=== PATIENT | female | born 1950 | race Caucasian/White ===

== ENCOUNTER → 2016-09-02 | Outpatient (CLI) | payer MEDICARE, OTHER ==
[~2016-09-02] MED LIST: /WARF25TA OR; ACET65TA OR; ASPIRIN; BISOPROLOL PO; CELEBREX; FLAX SEED PO; HYDROCHLOROTHIZIDE PO; PERC5TAB8 OR; [UNRECOGNIZED DRUG - OTHER] PO; [UNRECOGNIZED DRUG - OTHER] PO
--- NOTE | 2016-09-02 13:19 | REP ---
Digital diagnostic bilateral mammography and focused left breast sonography: History: 6-month follow-up for nodular opacity upper outer quadrant left breast. Screening mammogram on the right. Comparison is made with prior mammography from February 14, 2016, July 14, 2015, and July 10, 2015. Mammographic findings: Breast parenchyma remains predominately fat replaced. A 4 mm nodular density is again seen superficially in the upper outer quadrant of the left breast. It has relatively low mammographic opacity and may even have a portion of fat density. In any event, it is unchanged over the interval since the July 10, 2015 prior mammography. No other neodensity is seen. No microcalcification is observed. No architectural distortion or worrisome skin change is appreciated. Sonographic findings: The left breast is scanned from 12 o'clock to 3 o'clock as before. We were not able to visualize the previously noted complex cystic area. A few dilated ducts are seen at the nipple at the 12 o'clock position. No cyst or mass is seen. Fairly homogeneous background echotexture is seen. Impression: BIRADS category 3 probably benign left breast imaging. No change in the 4 mm nodule in the upper outer quadrant. Repeat left breast mammography recommended in 6 months and bilateral study in 1 year. BI-RADS/ACR category 3 mammogram. Probably benign findings. Initial short-term followup (usually 6 month) examination. This mammogram was interpreted with the aid of an FDA-approved computer-aided detection system. The patient states she had a clinical breast exam in February 2016. The patient letter being requested is M3. Signed by Guero Cofefy MD 09/02/2016 01:44 P
== END ==
LOC: M RAD 10:18
PROVIDERS: ATTEND Surgery
DX: R92.8 Other abnormal and inconclusive findings on diagnostic imaging of breast (principal)
CPT/HCPCS: 76642; G0204

== ENCOUNTER → 2017-02-25 | Outpatient (CLI) | payer MEDICARE, OTHER ==
--- NOTE | 2017-02-25 09:57 | REP ---
Digital diagnostic unilateral left breast mammography with CAD : Five views. History: 6-month follow-up BIRADS category 3 mammogram for a upper outer quadrant nodule in the left breast. Comparison mammography is also reviewed from September 02, 2016, February 14, 2016, July 14, 2015, and July 10, 2015. Findings: There has been no change in the size or appearance of the 4 mm superficial nodule projecting in the upper outer quadrant of the left breast in the interval since June 2015 prior study. Breast parenchyma is otherwise predominately fat replaced. No worrisome skin change is seen. There are scattered dermal calcifications again noted which are benign. Impression: BIRADS category 2 stable left breast mammography. Routine screening mammography can be resumed with a bilateral exam in August 2017. BI-RADS/ACR category 2 mammogram. Benign finding(s). Routine annual screening mammography (for women over age 40). This mammogram was interpreted with the aid of an FDA-approved computer-aided detection system. The patient states she had a clinical breast exam in December 2016. The patient letter being requested is M1. Signed by Guero Coffey MD 02/25/2017 04:01 P
== END ==
LOC: M RAD 08:45
PROVIDERS: ATTEND Surgery
DX: R92.8 Other abnormal and inconclusive findings on diagnostic imaging of breast (principal); R92.0 Mammographic microcalcification found on diagnostic imaging of breast

== ENCOUNTER → 2017-09-03 | Outpatient (CLI) | payer MEDICARE, OTHER | LOC: M WHC 08:36 | DX: Z12.31 Encounter for screening mammogram for malignant neoplasm of breast (principal) | CPT/HCPCS: 77067 ==

== ENCOUNTER → 2018-05-12 | Outpatient (REF) | payer MEDICARE, OTHER ==
[2018-05-12 12:37] LABS: C REACTIVE PROTEIN QUANTITATIV 1.76 MG/DL (0.00-0.30)
== END ==
LOC: M LABDRAW1 10:36
DX: M19.031 Primary osteoarthritis, right wrist (principal)
CPT/HCPCS: 86140

== ENCOUNTER → 2018-06-17 | Outpatient (REF) | payer MEDICARE, OTHER ==
[2018-06-17 18:06] LABS: C REACTIVE PROTEIN QUANTITATIV 1.89 MG/DL (0.00-0.30)
== END ==
LOC: M LAB REF 17:22
DX: M25.50 Pain in unspecified joint (principal)
CPT/HCPCS: 86140

== ENCOUNTER → 2018-09-04 | Outpatient (CLI) | payer MEDICARE, OTHER ==
--- NOTE | 2018-09-04 11:56 | REPMRS ---
Patient History The patient states she has not had a clinical breast exam in over a year. Patient is postmenopausal. Family history of breast cancer at age 48 in sister, prostate cancer at age 50 or over in father. Took estrogen for 5 years. Digital Woman Screen Mammo: September 04, 2018 - Exam #: [id number] Bilateral CC and MLO view(s) were taken. Technologist: Magdalena Dennis, Technologist Prior study comparison: September 03, 2017, digital woman screen mammo performed at [facility]. February 25, 2017, left breast digital mammo diagnostic unilateral, performed at [facility]. September 02, 2016, digital mammo diagnostic bilateral, performed at [facility]. FINDINGS: The breast tissue is almost entirely fat. There is a stable 5 mm well circumscribed benign nodule in the left lateral breast unchanged from multiple prior studies. There has been no change in the appearance of the mammogram from the prior studies. There is no interval development of dominant mass, architectural distortion, or clustered microcalcification typical of malignancy. 3-D tomosynthesis shows no additional findings. Assessment: BI-RADS/ACR category 2 mammogram. Benign Findings. Recommendation Routine screening mammogram of both breasts in 1 year (for women over age 40). This patient's Lifetime Breast Cancer RIsk is estimated at 12.0 %. This mammogram was interpreted with the aid of an FDA-approved computer-aided dectection system. Electronically Signed By: Jose Coffey MD 09/04/18 [id number]
== END ==
LOC: M WHC 09:55
PROVIDERS: ATTEND Family Medicine
DX: Z12.31 Encounter for screening mammogram for malignant neoplasm of breast (principal); Z78.0 Asymptomatic menopausal state; N63.20 Unspecified lump in the left breast, unspecified quadrant; Z80.3 Family history of malignant neoplasm of breast; Z80.42 Family history of malignant neoplasm of prostate; Z92.23 Personal history of estrogen therapy

== ENCOUNTER → 2018-12-28 | Outpatient (REF) | payer MEDICARE, OTHER ==
[~2018-12-28] MED LIST changes: -/WARF25TA OR; +COUM1TAB18 OR
[2018-12-28 13:24] LABS: C REACTIVE PROTEIN QUANTITATIV 1.54 MG/DL (0.00-0.30); RHEUMATOID FACTOR QUANT < 10.0 IU/ML (<15.0); URIC ACID 5.5 MG/DL (2.6-6.0)
[2018-12-29 14:10] LABS: ANTINUCLEAR ANTIBODIES DIRECT Negative (Negative)
== END ==
LOC: M LAB REF 12:06
PROVIDERS: ATTEND Family Medicine
DX: M25.50 Pain in unspecified joint (principal)

== ENCOUNTER → 2019-09-06 | Outpatient (CLI) | payer MEDICARE, OTHER ==
--- NOTE | 2019-09-06 11:15 | REPMRS ---
Patient History The patient states she has not had a clinical breast exam in over a year. Family history of breast cancer at age 48 in sister, prostate cancer at age 50 or over in father. Took estrogen for 5 years. 3D TOMOSYNTHESIS WAS PERFORMED. The [facility] lifetime risk for breast cancer is 11.3%. Digital Woman Screen Mammo: September 06, 2019 - Exam #: [id number] Bilateral CC and MLO view(s) were taken. Technologist: Melina Causey, Technologist Prior study comparison: September 04, 2018, bilateral digital woman screen mammo performed at [facility]. September 03, 2017, digital woman screen mammo performed at [facility]. FINDINGS: There are scattered fibroglandular densities. There has been no change in the appearance of the mammogram from the prior studies. There is a mild amount of residual fibroglandular tissue which is fairly symmetric. There is no interval development of dominant mass, architectural distortion, or clustered microcalcification suggestive of malignancy. Assessment: BI-RADS/ACR category 1 mammogram. Negative Mammogram. Recommendation Routine screening mammogram in 1 year (for women over age 40). This mammogram was interpreted with the aid of an FDA-approved computer-aided dectection system. Electronically Signed By: Torres Irving MD 09/06/19 [id number]
--- NOTE | 2019-09-08 14:00 | DEXA ---
AP SPINE L1 - L4 1.475 2.3 3.9 LT FEMUR TOTAL Left hip replacement. LT NECK Left hip replacement. RT FEMUR TOTAL Right hip replacement RT NECK Right hip replacement. LEFT RADIUS 33% 0.800 -0.9 0.8 OTHER COMMENTS: Normal bone densitometry of the spine. There is low bone density of the left radius. The increased density of the spine does represent a significant change. The density of the spine has increased 9.1% since the initial exam on 06/06/2004. The spine density has increased 5.5% since the most recent exam on 06/25/2010. Left hip replacement. Right hip replacement. FOLLOW-UP: Recommendation for the next bone density exam: 2 years. TEA
== END ==
LOC: M WHC 09:27
PROVIDERS: ATTEND Family Medicine
DX: Z12.31 Encounter for screening mammogram for malignant neoplasm of breast (principal); M81.0 Age-related osteoporosis without current pathological fracture; Z80.3 Family history of malignant neoplasm of breast; Z80.42 Family history of malignant neoplasm of prostate; Z96.643 Presence of artificial hip joint, bilateral; M85.832 Other specified disorders of bone density and structure, left forearm; M85.88 Other specified disorders of bone density and structure, other site

== ENCOUNTER 2020-03-30 09:31 | Day surgery (SDC) | payer MEDICARE, OTHER ==
[~2020-03-30] VITALS: Ht 170.2 cm; Wt 106.6 kg
[2020-03-30] MEDS ORDERED: LISI-542 PO (10:02)
[2020-03-30] MEDS ORDERED: JANU100T14 PO (10:02)
[2020-03-30] MEDS ORDERED: bisoproloL fumarate 5 MG TAB As Ordered ONE (10:04)
[2020-03-30 10:05] VITALS: BP 186/86
[2020-03-30] MEDS ORDERED: NS 1,000 ML IV ONE (10:15)
[2020-03-30] MEDS ORDERED: bisoproloL fumarate 5 MG TAB PO ONE (11:00)
[2020-03-30] MEDS ORDERED: LIDOCAINE 2% 100MG/5ML SDV (FOR ANES.) As Ordered ONE (11:01)
[2020-03-30] MEDS ORDERED: propofoL 200 MG/20 ML VIAL As Ordered ONE (11:01)
[2020-03-30 11:24] VITALS: BP 170/74
--- NOTE | 2020-04-19 11:29 | ROOR ---
Patient Name: Michelle Hooks Procedure Date: 03/30/2020 9:29 AM Date of : 1950 Age: 69 Room: LTAC, [facility]IN [facility] Gender: Female Note Status: Finalized Procedure: Colonoscopy Indications: Screening for colorectal malignant neoplasm Providers: Rusty Crow Jr, MD Referring MD: Tico Mac MD Requesting Provider: Medicines: Propofol per Anesthesia Complications: No immediate complications. Procedure: Pre-Anesthesia Assessment: - Prior to the procedure, a History and Physical was performed, and patient medications and allergies were reviewed. The patient is competent. The risks and benefits of the procedure and the sedation options and risks were discussed with the patient. All questions were answered and informed consent was obtained. Patient identification and proposed procedure were verified by the physician and the nurse in the pre-procedure area and in the procedure room. Mental Status Examination: alert and oriented. Airway Examination: normal oropharyngeal airway and neck mobility. Respiratory Examination: clear to auscultation. CV Examination: normal. ASA Grade Assessment: II - A patient with mild systemic disease. After reviewing the risks and benefits, the patient was deemed in satisfactory condition to undergo the procedure. The anesthesia plan was to use moderate sedation / analgesia (conscious sedation). Immediately prior to administration of medications, the patient was re-assessed for adequacy to receive sedatives. The heart rate, respiratory rate, oxygen saturations, blood pressure, adequacy of pulmonary ventilation, and response to care were monitored throughout the procedure. The physical status of the patient was re-assessed after the procedure. The Colonoscope was introduced through the anus and advanced to the cecum, identified by appendiceal orifice and ileocecal valve. The colonoscopy was performed without difficulty. The quality of the bowel preparation was adequate. Findings: The rectum, recto-sigmoid colon, descending colon, transverse colon, ascending colon, cecum, appendiceal orifice and ileocecal valve appeared normal. A small polyp was found in the sigmoid colon. The polyp was removed with a cold snare. Resection and retrieval were complete. Impression: - The rectum, recto-sigmoid colon, descending colon, transverse colon, ascending colon, cecum, appendiceal orifice and ileocecal valve are normal. - One small polyp in the sigmoid colon, removed with a cold snare. Resected and retrieved. Recommendation: - Repeat colonoscopy in 5-10 years for screening purposes. Rusty Crow MD Rusty Crow Jr, MD 03/30/2020 10:51:49 AM Number of Addenda: 0 Note Initiated On: 03/30/2020 9:29 AM Estimated Blood Loss: Estimated blood loss: none.
== END 2020-03-30 11:25 | disposition home or self-care (01) ==
LOC: M OPP 09:31
PROVIDERS: ATTEND Surgery
DX: Z12.11 Encounter for screening for malignant neoplasm of colon (principal); K63.5 Polyp of colon; E11.9 Type 2 diabetes mellitus without complications; Z79.82 Long term (current) use of aspirin; Z79.899 Other long term (current) drug therapy; Z88.4 Allergy status to anesthetic agent; Z88.5 Allergy status to narcotic agent; Z87.891 Personal history of nicotine dependence

== ENCOUNTER → 2020-07-11 | Outpatient (CLI) | payer MEDICARE, OTHER ==
[~2020-07-11] MED LIST changes: +JANU100T14 PO; +LISI-542 PO
== END ==
LOC: M LABSMTC 13:35
PROVIDERS: ATTEND Family Medicine
DX: Z20.828 Contact with and (suspected) exposure to other viral communicable diseases (principal)

== ENCOUNTER → 2020-07-17 | Outpatient (CLI) | payer SELFPAY | LOC: M LABSMTC 15:22 | PROVIDERS: ATTEND Pediatrics | DX: Z20.828 Contact with and (suspected) exposure to other viral communicable diseases (principal) ==

== ENCOUNTER → 2020-09-07 | Outpatient (CLI) | payer MEDICARE, OTHER ==
--- NOTE | 2020-09-07 10:59 | REPMRS ---
Patient History The patient states she has not had a clinical breast exam in over a year. Family history of breast cancer at age 48 in sister, prostate cancer at age 50 or over in father. Took estrogen for 5 years. Digital Woman Screen Mammo: September 07, 2020 - Exam #: [id number] Bilateral CC and MLO view(s) were taken. Technologist: Fina Verde, Technologist Prior study comparison: September 06, 2019, bilateral digital woman screen mammo performed at [facility]. September 04, 2018, bilateral digital woman screen mammo performed at [facility]. September 03, 2017, digital woman screen mammo performed at [facility]. FINDINGS: There are scattered fibroglandular densities. The Volpara volumetric breast density category is:B. There has been no change in the appearance of the mammogram from the prior studies. There is a mild amount of scattered fibroglandular density which is fairly symmetric. There is no interval development of dominant mass, architectural distortion, or grouped microcalcification suggestive of malignancy. 3-D tomosynthesis shows no additional findings. Assessment: BI-RADS/ACR category 1 mammogram. Negative Mammogram. Recommendation Routine screening mammogram of both breasts in 1 year (for women over age 40). This patient's [facility] Lifetime Breast Cancer Risk is estimated at 10.6 %. This mammogram was interpreted with the aid of an FDA-approved computer-aided dectection system. Electronically Signed By: Jose Coffey MD 09/07/20 [id number]
== END ==
LOC: M WHC 09:43
PROVIDERS: ATTEND Family Medicine
DX: Z12.31 Encounter for screening mammogram for malignant neoplasm of breast (principal); Z80.3 Family history of malignant neoplasm of breast

== ENCOUNTER 2020-10-23 10:35 | Observation (INO) | payer MEDICARE, OTHER ==
[2020-10-22 20:00] VITALS: BP 131/64
[~2020-10-23] VITALS: Ht 167.6 cm; Wt 101.3 kg
[~2020-10-23 10:35] MED LIST changes: -LISI-542 PO; +LISI-898 PO
[2020-10-23] MEDS ORDERED: ATOR1TAB19 PO (10:52)
[2020-10-23] MEDS ORDERED: OMEP40CA97 PO (10:52)
[2020-10-23] MEDS ORDERED: MAG (10:52)
[2020-10-23] MEDS ORDERED: OCUVTAB4 PO (10:52)
--- NOTE | 2020-10-23 11:41 | REP ---
INDICATION: DYSPNEA/COUGH COMPARISON: 11/05/2010 TECHNIQUE: Portable AP view of the chest FINDINGS: Right lower lobe opacity suggests atelectasis and small pleural effusion. IMPRESSION: Right lower lobe atelectasis and small pleural effusion. <Electronically signed by Major Robbins > 10/23/20 [id number]
[2020-10-23 11:46] LABS: BASO % 0.3 % (0.0-1.0); EOS % 0.1 % (0.0-3.0); HEMATOCRIT 37.9 % (36.0-47.0); HEMOGLOBIN 11.8 g/dl (12.0-15.5); LYMPH # 1.7 10^3/uL (1.5-5.0); LYMPH % 12.6 % (24.0-44.0); MEAN CORPUSCULAR HEMOGLOBIN 25.3 pg (27.0-33.0); MEAN CORPUSCULAR HGB CONC 31.1 g/dl (32.0-36.5); MEAN CORPUSCULAR VOLUME 81.3 fl (80.0-96.0); MONO # 0.5 10^3/uL (0.0-0.8); MONO % 3.9 % (2.0-8.0); NEUTROPHILS # 11.3 10^3/uL (1.5-8.5); NEUTROPHILS % 82.7 % (36.0-66.0); PLATELET COUNT, AUTOMATED 303 10^3/uL (150-450); RED BLOOD COUNT 4.66 10^6/uL (4.00-5.40); WHITE BLOOD COUNT 13.6 10^3/uL (4.0-10.0)
--- NOTE | 2020-10-23 11:50 | ED PDOC ---
Post-Departure Follow-Up RHIO accessed. Patient informed. Francisco Howell M.D. Oct 23, 2020 11:50
[2020-10-23] MEDS ORDERED: ASPIRIN 81 MG CHEW TABLET PO ONE (12:00)
[2020-10-23] MEDS ORDERED: DIGOXIN INJ 0.5 MG/2 ML AMP (J1160) IV ONE (12:00)
[2020-10-23 12:15] LABS: BLOOD UREA NITROGEN 26 MG/DL (7-18); CALCIUM LEVEL 9.5 MG/DL (8.8-10.2); CARBON DIOXIDE LEVEL 24 MEQ/L (21-32); CHLORIDE LEVEL 104 MEQ/L (98-107); CK-MB VALUE MASS 1.5 NG/ML (<3.6); CPK CREATINE PHOSPHOKINASE 103 U/L (26-192); CREATININE FOR GFR 1.21 MG/DL (0.55-1.30); GLUCOSE, FASTING 205 MG/DL (70-100); MB/CK RELATIVE INDEX 1.46 (< OR =4); NT-PRO BNP 3944 PG/ML (<125); POTASSIUM SERUM 3.9 MEQ/L (3.5-5.1); SODIUM LEVEL 139 MEQ/L (136-145); TROPONIN I < 0.02 NG/ML (< 0.10)
[2020-10-23] MEDS ORDERED: DIGOXIN INJ 0.5 MG/2 ML AMP (J1160) IV STA (13:24)
--- NOTE | 2020-10-23 13:38 | REP ---
INDICATION: RLL opacity. COMPARISON: None. Portable chest performed earlier today. There are no comparison chest CT studies. TECHNIQUE: Chest CT without IV contrast. FINDINGS: There small bilateral pleural effusions. The right pleural effusion is slightly larger. There is a 1.9 cm bilobed nodule like density, pleural based along the anterior margin of the right pleural effusion on image 62, nonspecific, true pleural-based nodule versus loculated pleural effusion. There are no infiltrates. No other lung masses or nodules are identified. There are enlarged mediastinal nodes measuring up to 10 mm short axis. In the absence of IV contrast the study is insensitive for hilar lymphadenopathy. The right lobe of the thyroid is enlarged. Within the enlarged right lobe there is a hyperdense nodule. Thyroid ultrasound might be considered. The unenhanced thoracic aorta is unremarkable. Cardiac size is normal. There is no pericardial effusion. There is calcified atheroma in the anterior descending branch of the coronary arteries. Upper abdomen: There are multiple gallbladder calculi with rim calcification. No biliary duct dilatation. The unenhanced pancreas and spleen are unremarkable except for a splenic calcified granuloma. There is calcified atheroma outlining a splenic artery aneurysm measuring up to 16 mm in diameter. There is no adrenal mass. IMPRESSION: Small bilateral pleural effusions. The right pleural effusion is slightly larger. 1.9 cm bilobed nodular density along the anterior margin of the right pleural effusion, artifact from the pleural effusion versus true lung nodule. Enlarged mediastinal nodes. Enlarged thyroid right lobe. There is also a hyperdense nodule in the thyroid right lobe. Consider thyroid ultrasound for follow-up. Cholelithiasis without biliary duct dilatation. 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 <Electronically signed by Torres Ness > 10/23/20 [id number]
[2020-10-23] MEDS ORDERED: ACET-683 PO (14:01)
[2020-10-23] MEDS ORDERED: ASPI81TA26 PO (14:01)
[2020-10-23] MEDS ORDERED: MOBI4TAB PO (14:01)
[2020-10-23] MEDS ORDERED: BISO5TAB14 PO (14:01)
[2020-10-23] MEDS ORDERED: GNP1000C11 PO (14:01)
[2020-10-23] MEDS ORDERED: HYDR-3490 PO (14:01)
[2020-10-23] MEDS ORDERED: MAGN64TASA PO (14:01)
--- NOTE | 2020-10-23 15:30 | HPEPDOC ---
General Date of Admission Oct 23, 2020 at 10:36 Date of Service: Oct 23, 2020 Attending Physician: BIN BRAXTON MD Chief Complaint The patient is a 70-year-old female admitted with a reason for visit of New Onset Afib,New Onset Lbbb,Pleural Effusion. Source: Patient Exam Limitations: No limitations History of Present Illness Patient is a 70 year old female with a PMH of HTN, DM type 2, and asthma (not formally diagnosed) who presented to the ED due to SOB onset (10/19/20). Pt reports that the SOB was a sudden onset that occurred when she was going about her daily activities. SOB is worse with exertion and improved with 10 minutes of rest. She states that this SOB is different than her normal SOB associated with asthma. Pt admits to audible wheezing and chest congestion. She describes the chest congestion as her chest feeling "uncomfortable". She reports that she sleeps on one pillow with the head of her bed elevated due to "feeling anxious" of laying flat. Pt denies any CP, palpitations, fevers, chills, N/V/D, abd pain, leg swelling, visual changes, weight changes, fatigue, or diaphoresis. In the ED, pt was found to be in atrial fibrillation with RVR on EKG and initially had a soft BP thus subsequently started on digoxin. Pt denies any hx of a-fib in the past. On CT chest it was found that pt had an enlarged thyroid R lobe as well as hyperdense nodule in the R thyroid. Thyroid US showed multinodular thyroid with the largest nodule in the lower pole of the R lobe measuring 3.0 cm in the greatest diameter. She denies any hx of hyper/hypothyroidism or other thyroid abnormalities. Small b/l pleural effusions and 1.9 cm bilobed nodular density was also found on CT chest. CXR showed R lower lobe atelectasis and small pleural effusion. Home Medications Scheduled Apixaban (Eliquis) 5 Mg Tablet, 5 MG PO BID Atorvastatin Calcium (Atorvastatin Calcium) 10 Mg Tablet, 10 MG PO DAILY, (Reported) Diltiazem HCl (Cardizem LA) 120 Mg Tab.er.24h, 120 MG PO DAILY for high blood pressure Flaxseed Oil (Flaxseed) 1,000 Mg Capsule, 1 CAP PO DAILY, (Reported) Magnesium Chloride (Mag64) 64 Mg Tablet.dr, 128 MG PO DAILY, (Reported) Omeprazole (Omeprazole) 40 Mg Capsule.dr, 40 MG PO QHS, (Reported) Sitagliptin Phos/Metformin HCl (Janumet Xr 100-1,000 mg Tablet) 1 Each Tbmp.24hr, 1 TAB PO DAILY, (Reported) Vit A/Vit C/Vit E/Zinc/Copper (Preservision Areds Tablet) 1 Each Tablet, 1 TAB PO DAILY, (Reported) Scheduled PRN Acetaminophen (Acetaminophen) 500 Mg Tablet, 1,000 MG PO Q6H PRN for PAIN, (Reported) Furosemide (Lasix) 20 Mg Tablet, 20 MG PO Q48HP PRN for SEE LABEL COMMENTS Meloxicam (Mobic) 7.5 Mg Tablet, 7.5 MG PO DAILY PRN for PAIN, (Reported) WITH FOOD Allergies Coded Allergies: morphine (Verified Adverse Reaction, Mild, feels strange, 03/29/20) procaine (Verified Adverse Reaction, Mild, PALPITATIONS, 03/29/20) Past Medical History Medical History 1. HTN. 2. Type 2 DM. 3. Diabetic neuropathy to b/l feet. 4. Asthma (not formally diagnosed). Surgical History None. Family History Significant Family History: Cancer (Mother has hx of non-hodgkin lymphoma. Father has hx of prostate and lung cancer. Sister has hx of breast cancer. 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 A-FIB/CHADSVASC A-FIB History Current/History of A-Fib/PAF?: Yes Current PO Anticoag Therapy: No Age/Risk Factor Scoring CHADSVASC: CHADSVASC Response (Comments) Value Age Risk Factor Age 65-74 years old 1 Gender Risk Factor Female 1 Hx of CHF No 0 Hx of HTN Yes 1 Hx of Stroke/TIA/or VTE No 0 Hx of Diabetes Yes 1 Hx of Vascular Disease No 0 Total 4 Treatment Treatment ordered: Heparin IV bridge Therapy Review of Systems Constitutional: Denies: Chills, Fever, Night Sweats, Weight Loss Eyes: Denies: Vision change Pulmonary: Reports: Dyspnea, Other Symptoms (Wheezing; "chest congestion") Cardiovascular: Denies: Chest Pain, Palpitations, Edema Gastrointestinal: Denies: Nausea, Vomiting, Abdominal Pain, Diarrhea Physical Examination General Exam: Positive: Alert, Cooperative, No Acute Distress Eye Exam: Positive: Conjunctiva & lids normal, EOMI ENT Exam: Positive: Atraumatic, Mucous membr. moist/pink, Pharynx Normal Neck Exam: Positive: Supple, thyromegaly; Negative: JVD, +2 carotid pulse wo bruit, Lymphadenopathy Chest Exam: Positive: Clear to auscultation (crackles on bases ), Diminished Heart Exam: Positive: Tachycardic, Irregular Rhythm, Normal S1, Normal S2, Other (slightly displaced PMI. ); Negative: Gallops, Murmurs, Rubs Telemetry: Positive: Atrial fibrillation, Tachycardia, PVCs Abdomen Exam: Positive: Normal bowel sounds Extremity Exam: Positive: Edema (2+ pitting edema bilateral lower extr ); Negative: Clubbing, Cyanosis Neuro Exam: Positive: Strength at 5/5 X4 ext, Sensation Intact Vital Signs Vital Signs Date Time Temp Pulse Resp B/P (MAP) Pulse Ox O2 Delivery O2 Flow Rate FiO2 10/23/20 15:15 128 18 150/88 (108) 97 Room Air 10/23/20 10:37 97.6 Laboratory Data Labs 24H Laboratory Tests 2 10/23/20 11:20: Immature Granulocyte % (Auto) 0.4, Neutrophils (%) (Auto) 82.7H, Lymphocytes (%) (Auto) 12.6L, Monocytes (%) (Auto) 3.9, Eosinophils (%) (Auto) 0.1, Basophils (%) (Auto) 0.3, Neutrophils # (Auto) 11.3H, Lymphocytes # (Auto) 1.7, Monocytes # (Auto) 0.5, Eosinophils # (Auto) 0.0, Basophils # (Auto) 0.0, Nucleated Red Blood Cells % (auto) 0.0, Anion Gap 11, Glomerular Filtration Rate 47.0, Lactic Acid Level 4.0*H, Calcium Level 9.5, Total Creatine Kinase 103, Creatine Kinase MB 1.5, Creatine Kinase MB Relative Index 1.46, Troponin I < 0.02, MI-Lcm-E-Type Natriuretic Peptide 3944H, Thyroid Stimulating Hormone (TSH) 2.000 10/23/20 11:52: POC pH (Misc Panel) 7.489H, POC Base Excess (Misc Panel) -4.0L, POC Saturated Percent O2 (Misc) 97, POC pO2 (Misc Panel) 83.0, POC pCO2 (Misc Panel) 25.8L, POC HCO3 (Misc Panel) 19.6L, POC Total CO2 (Misc Panel) 20.0L CBC/BMP Laboratory Tests 10/23/20 11:20 Microbiology Microbiology 10/23/20 Blood Culture, Received Pending 10/23/20 Respiratory Virus Panel (PCR) ([facility]) - Final, Complete 10/23/20 Blood Culture, Received Pending Assessment/Plan Assessment: Patient is a 70 year old female with a PMH of HTN, DM type 2, and asthma (not formally diagnosed) who presented to the ED due to SOB onset (10/19/20). Pt reports that the SOB was a sudden onset that occurred when she was going about her daily activities. SOB is worse with exertion and improved with 10 minutes of rest. She states that this SOB is different than her normal SOB associated with asthma. Pt admits to audible wheezing and chest congestion. She describes the chest congestion as her chest feeling "uncomfortable". She reports that she sleeps on one pillow with the head of her bed elevated due to "feeling anxious" of laying flat. Pt denies any CP, palpitations, fevers, chills, N/V/D, abd pain, leg swelling, visual changes, weight changes, fatigue, or diaphoresis. In the ED, pt was found to be in atrial fibrillation with RVR on EKG. Pt denies any hx of a-fib in the past. On CT chest it was found that pt had an enlarged thyroid R lobe as well as hyperdense nodule in the R thyroid. Thyroid US showed multinodular thyroid with the largest nodule in the lower pole of the R lobe measuring 3.0 cm in the greatest diameter. However, pt TSH is 2 and WNL. She de nies any hx of hyper/hypothyroidism or other thyroid abnormalities. Small b/l pleural effusions and 1.9 cm bilobed nodular density was also found on CT chest. CXR showed R lower lobe atelectasis and small pleural effusion. Pt is being admitted for new onset atrial fibrillation with RVR. Plan: #SOB, multifactorial, likely 2/2 new onset a-fib and heart failure, unspecified - BNP was elevated at 3944 on 10/23/20. - Pt had 2+ pitting edema and SOB on PE. - See below for further work up regarding heart failure and atrial fibrillation. #New onset atrial fibrillation with RVR - Pt denies any previous hx of a-fib with RVR or any other cardiac history. - CT chest returned to show enlarged thyroid R lobe as well as hyperdense nodule in R thyroid. Thyroid US showed multinodular thyroid with the largest nodule in the lower pole of the R lobe, measuring 3 cm in the greatest diameter. A-fib with RVR unlikely due to hyperthyroidism as TSH is 2 and WNL. Will continue to work up with thyroid profile. - Echocardiogram ordered to eval for vavular vs non valvular etiology as a cause for Afib - Will start Diltiazem 30 mg PO Q6H for rate control. - Will start Heparin drip as anticoagulation. Will monitor pt for stool occult blood and signs of bleeding. - Plan to switch Heparin to Eliquis. - Coags pending. - Pt placed on telemetry monitoring. - Will trend troponin and EKGs. initial EKG reported states new LBBB; however, very difficult to assess due to rapid ventricular rate - Will closely monitor on tele and repeat EKG - Titrate O2 levels >94%. #Pleural effusion - CXR on 10/23/20 showed R lower lobe atelectasis and small pleural effusion. - CT Chest on 10/23/20 showed small b/l pleural effusions. - Likely due to acute CHF 2/2 new onset atrial fibrillation with RVR. - Will continue to monitor fluid status and BP. - Will start pt on Lasix. #Heart failure, unspecified - Unspecified and under evaluation. - BNP was elevated at 3944 on 10/23/20. - Pt had 2+ pitting edema and SOB on PE. - Will start pt on Lasix. - Echo pending. #Lactic acidosis type A - Lactic acid on 10/23/20 was 4. Likely 2/2 hypoperfusion due to new onset a-fib with RVR causing decreased cardiac output. - Will continue to monitor lactic acid levels. #R pleural base nodule - CT Chest on 10/23/20 showed 1.9 cm bilobed nodular density along the anterior margin of the R pleural effusion, artifact from the pleural effusion vs true lung nodule. - Will have pt follow up outpatient regarding this nodule. #R thyroid nodule - CT chest (10/23/20) returned to show enlarged thyroid R lobe as well as hyperdense nodule in R thyroid. - Thyroid US (10/23/20) showed multinodular thyroid with the largest nodule in the lower pole of the R lobe, measuring 3 cm in the greatest diameter. - Thyroid panel pending. - Will have patient follow up outpatient regarding thyroid nodule. #Hypertension - Pt has hx of HTN. - Continue HCTZ and lisinopril. - Continue Zebeta. #Type 2 DM - Consistent carb diet. - Will place pt on sliding scale insulin with hypoglycemic protocol. - Hgb A1C pending. #Chronic back pain - Continue Mobic. DVT Prophylaxis: Teds and sequentials. Heparin drip. Disposition: Pt has new onset atrial fibrillation with RVR. Will work up to find cause of new onset a-fib. Echo and thyroid panel pending. Discharge pending clinical improvement. Plan / VTE VTE Prophylaxis Ordered?: Yes GME ATTESTATION GME ATTESTATION My faculty preceptor for this patient encounter was physically present during the encounter and was fully available. All aspects of the patient interview, examination, medical decision making process, and medical care plan development were reviewed and approved by the faculty preceptor. The faculty preceptor is aware and concurs with the plan as stated in the body of this note and will attest to such by his/her cosignature. ATTENDING NOTE I, Bin Braxton MD, have independently examined this patient and performed my own physical exam, as well as reviewed the documentation and edited where necessary. I have discussed in detail with the resident / student the findings and plan of treatment as documented by the resident / student and edited their note. I agree with their findings and treatment plan and have edited their documentation. Ottoniel Santo DO Oct 23, 2020 15:30 Michelle LANGLEY OMS-3 Oct 23, 2020 15:53 BIN BRAXTON MD Oct 25, 2020 14:40
[2020-10-23] MEDS ORDERED: HEPARIN DRIP 25,000 UNITS in IV 1 EA IV SCH (15:35)
[2020-10-23] MEDS ORDERED: HEPARIN SOD (PORCINE) 5000UNITS/ML 1ML VIAL/SYRINGE IV PRN (15:35)
[2020-10-23] MEDS ORDERED: ACETAMINOPHEN 500 MG TAB PO PRN (15:40)
[2020-10-23] MEDS ORDERED: MELOXICAM (MOBIC) 7.5 MG TAB PO PRN (15:40)
[2020-10-23] MEDS ORDERED: GLUCOSE 4GM CHEW TABLET PO PRN (15:40)
[2020-10-23] MEDS ORDERED: GLUCAGON INJ 1MG VIAL SC PRN (15:40)
[2020-10-23] MEDS ORDERED: DEXTROSE 50% 50 ML SYRINGE IV PRN (15:40)
[2020-10-23 16:00] VITALS: BP 131/95
[2020-10-23] MEDS ORDERED: HEPARIN SOD (PORCINE) 5000UNITS/ML 1ML VIAL/SYRINGE IV ONE (16:00)
--- NOTE | 2020-10-23 16:00 | REP ---
INDICATION: R thyroid nodule. COMPARISON: Comparison is made with imaging from chest CT study done in this same date.. TECHNIQUE: High-resolution bilateral thyroid sonography. FINDINGS: Thyroid isthmus measures 0.6 cm in thickness. Right lobe dimensions are 5.6 x 2.1 x 2.4 cm. Left lobe is 4.3 x 1.1 x 1.6 cm in overall dimension. Multiple nodules are seen. The largest nodule is on the right in the lower pole measuring 3.0 x 1.6 x 2.9 cm. This has a partial hypoechoic margin. In the upper pole there is a is 1.0 cm, a 0.9 cm, and 0.5 cm hypoechoic nodule. In the left lower pole there is a hypoechoic nodule measuring 0.8 cm in greatest diameter. There is a complex nodule also in the lower pole on the left measuring 0.9 cm in diameter. IMPRESSION: Multinodular thyroid. The largest nodule is in the lower pole the right lobe measuring 3.0 cm in greatest diameter. <Electronically signed by Jose Coffey > 10/23/20 0544
[2020-10-23 16:38] LABS: FREE THYROXINE INDEX 3.7 % (1.3-4.8); T UPTAKE 32 % (30-39); THYROXINE (T4) 11.7 UG/DL (4.5-12.0); TROPONIN I < 0.02 NG/ML (< 0.10)
--- NOTE | 2020-10-23 16:58 | ECGEPIP ---
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 Electronically Signed on 10-23-2020 16:58:23 EDT by Yemi Hines
[2020-10-23] MEDS ORDERED: FUROSEMIDE 20MG/2ML VIAL (J1940) IV ONE (17:00)
[2020-10-23 17:28] LABS: HEMOGLOBIN A1c 6.5 %
[2020-10-23] MEDS: HumaLOG INSULIN (NovoLOG) PER UNIT SC SCH ×2 (17:30→21:00)
[2020-10-23] MEDS ORDERED: SLF 3 ML SYR IV PRN (17:50)
[2020-10-23 20:00] VITALS: BP 131/64
[2020-10-23] MEDS: OMEPRAZOLE 20 MG CAP PO SCH (20:36)
[2020-10-23] MEDS ORDERED: lisinopriL 5 MG TAB PO SCH (21:00)
[2020-10-23] MEDS ORDERED: APIXABAN 5 MG TAB (ELIQUIS) PO SCH (21:00)
[2020-10-23] MEDS: SLF 3 ML SYR IV SCH (21:33)
--- NOTE | 2020-10-23 22:12 | ECGEPIP ---
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
[2020-10-24] VITALS (7 sets, daily range): BP systolic 88–117; BP diastolic 50–76
[2020-10-24 00:40] LABS: AMPHETAMINES LEVEL URINE NEGATIVE (NEGATIVE); BARBITURATES URINE NEGATIVE (NEGATIVE); BENZODIAZEPINES URINE NEGATIVE (NEGATIVE); CANNABINOIDS URINE NEGATIVE (NEGATIVE); COCAINE METABOLITE URINE NEGATIVE (NEGATIVE); METHADONE URINE NEGATIVE (NEGATIVE); OPIATES URINE NEGATIVE (NEGATIVE); PHENCYCLIDINE URINE NEGATIVE (NEGATIVE)
[2020-10-24] MEDS: SLF 3 ML SYR IV SCH ×3 (05:19→20:15)
[2020-10-24 07:17] LABS: HEMATOCRIT 36.1 % (36.0-47.0); HEMOGLOBIN 11.3 g/dl (12.0-15.5); MEAN CORPUSCULAR HEMOGLOBIN 25.6 pg (27.0-33.0); MEAN CORPUSCULAR HGB CONC 31.3 g/dl (32.0-36.5); MEAN CORPUSCULAR VOLUME 81.9 fl (80.0-96.0); PLATELET COUNT, AUTOMATED 246 10^3/uL (150-450); RED BLOOD COUNT 4.41 10^6/uL (4.00-5.40); WHITE BLOOD COUNT 11.3 10^3/uL (4.0-10.0)
[2020-10-24] MEDS: HumaLOG INSULIN (NovoLOG) PER UNIT SC SCH ×4 (07:30→20:14)
[2020-10-24 07:48] LABS: CREATININE FOR GFR 1.04 MG/DL (0.55-1.30); GLOMERULAR FILTRATION RATE 55.9 (>45); MAGNESIUM LEVEL 1.7 MG/DL (1.8-2.4); POTASSIUM SERUM 3.7 MEQ/L (3.5-5.1)
[2020-10-24] MEDS ORDERED: lisinopriL 5 MG TAB PO SCH (09:00)
[2020-10-24] MEDS ORDERED: bisoproloL fumarate 5 MG TAB PO SCH (09:00)
[2020-10-24] MEDS: ATORVASTATIN 10 MG TAB PO SCH (09:19)
[2020-10-24] MEDS: OCUVITE 1 TAB PO SCH (09:19)
--- NOTE | 2020-10-24 11:08 | IPNPDOC ---
Subjective Date Seen The patient was seen on 10/24/20. Subjective Chief Complaint/HPI Subjective: Examined at bedside. No acute events overnight. Output of net negative approx 900ml. an episode of hypotension overnight 94/60 HR 80 and morning 0600 doze of cardizem held. Pt denies CP, SOB, abdominal pain fever, n/v/d. OBJECTIVE: PHYSICAL EXAMINATION: Constitutional: Awake and alert, in no apparent distress ENT: Sclera are clear. Mucosa is moist. Respiratory: Lungs CTA bilaterally. No respiratory distress Cardiovascular: Irregularly irregular, displacement of PMI, no JVD, no m/g/r appreciated. Gastrointestinal: Abdomen is soft, non distended, non tender, BS present. Musculoskeletal: trace lower extr edema, improved Neurologic: No focal neurological deficit. Mental Status: A&O x3, normal affect Skin: no clubbing or cyanosis ASSESSMENT AND PLAN: Patient is a 70 year old female with a PMH of HTN, DM type 2, and asthma (not formally diagnosed) who presented to the ED due to SOB onset (10/19/20). Pt reports that the SOB was a sudden onset that occurred when she was going about her daily activities. SOB is worse with exertion and improved with 10 minutes of rest. She states that this SOB is different than her normal SOB associated with asthma. Pt admits to audible wheezing and chest gloria estion. She describes the chest congestion as her chest feeling "uncomfortable". She reports that she sleeps on one pillow with the head of her bed elevated due to "feeling anxious" of laying flat. Pt denies any CP, palpitations, fevers, chills, N/V/D, abd pain, leg swelling, visual changes, weight changes, fatigue, or diaphoresis. In the ED, pt was found to be in atrial fibrillation with RVR on EKG and initially had a soft BP thus subsequently started on digoxin. Pt denies any hx of a-fib in the past. On CT chest it was found that pt had an enlarged thyroid R lobe as well as hyperdense nodule in the R thyroid. Thyroid US showed multinodular thyroid with the largest nodule in the lower pole of the R lobe measuring 3.0 cm in the greatest diameter. She denies any hx of hyper/hypothyroidism or other thyroid abnormalities. Small b/l pleural effusions and 1.9 cm bilobed nodular density was also found on CT chest. CXR showed R lower lobe atelectasis and small pleural effusion. #SOB, multifactorial, likely 2/2 new onset a-fib and heart failure, unspecified - Will start lasix 20mg PO daily - strict ins and outs #New onset atrial fibrillation with RVR - may be liekyl 2/2 to conduction abn per ECHO prelim verbal results - May benefit from f/u with epidemiology internship on outpt basis to discuss ablation therapy - c/w cardizem PO q6h - will d/c heparin gtt and transition to PO eliquis - episode of hypotension overnight- am dose cardizem held - Will d/c hctz, bisprolol and lisinopril - will add lasix 20mg PO daily - Will continue to monitor bp closely - Trops x3 wnl -ECHO prelim results- verbal results per Dr. Perez: LVH with septal wall abn, preserved Ef, mILD tr, mr; HIGH cvp; MILD PULM htn. lbbb wide complexes/conduction abn - Will closely monitor on tele and repeat EKG - Titrate O2 levels >94%. #Pleural effusion - c/w scheduled lasix #HFpEF - Per ECHO- prelim verbal results - BNP was elevated at 3944 on 10/23/20; repeat BNP pending - Lasix 20mg po daily #Lactic acidosis type A - Lactic acid on 10/23/20 was 4. Likely 2/2 hypoperfusion due to new onset a-fib with RVR causing decreased cardiac output. - Will continue to monitor lactic acid levels. #R pleural base nodule - CT Chest on 10/23/20 showed 1.9 cm bilobed nodular density along the anterior margin of the R pleural effusion, artifact from the pleural effusion vs true lung nodule. - Will have pt follow up outpatient regarding this nodule. #R thyroid nodule - CT chest (10/23/20) returned to show enlarged thyroid R lobe as well as hyperdense nodule in R thyroid. - Thyroid US (10/23/20) showed multinodular thyroid with the largest nodule in the lower pole of the R lobe, measuring 3 cm in the greatest diameter. - Thyroid panel WNL - Will have patient follow up outpatient w/ Dr. Hale #HypoMg - repleted - will monitor closely #Hypertension - Pt has hx of HTN. - Continue HCTZ and lisinopril. - Continue Zebeta. #Type 2 DM - Consistent carb diet. - Will place pt on sliding scale insulin with hypoglycemic protocol. - Hgb A1C pending. #Chronic back pain - Continue Mobic. DVT Prophylaxis: Eliquis Objective Physical Examination General Exam: Positive: Alert, Cooperative, No Acute Distress Eye Exam: Positive: Conjunctiva & lids normal, EOMI ENT Exam: Positive: Atraumatic, Mucous membr. moist/pink, Pharynx Normal Neck Exam: Positive: Supple, thyromegaly; Negative: JVD, +2 carotid pulse wo bruit, Lymphadenopathy Chest Exam: Positive: Clear to auscultation (crackles on bases ), Diminished Heart Exam: Positive: Tachycardic, Irregular Rhythm, Normal S1, Normal S2, Other (slightly displaced PMI. ); Negative: Gallops, Murmurs, Rubs Telemetry: Positive: Atrial fibrillation, Tachycardia, PVCs Abdomen Exam: Positive: Normal bowel sounds Extremity Exam: Positive: Edema (2+ pitting edema bilateral lower extr ); Negative: Clubbing, Cyanosis Neuro Exam: Positive: Strength at 5/5 X4 ext, Sensation Intact Assessment /Plan Plan/VTE VTE Prophylaxis Ordered?: Yes VS, I&O, 24H, Fishbone Vital Signs/I&O Vital Signs Date Time Temp Pulse Resp B/P (MAP) Pulse Ox O2 Delivery O2 Flow Rate FiO2 10/24/20 09:00 100 110/56 10/24/20 07:24 98.1 18 95 Room Air I&O- Last 24 Hours up to 6 AM 10/24/20 06:00 Intake Total 315 ml Output Total 900 ml Balance -585 ml Laboratory Data 24H LABS Laboratory Tests 2 10/23/20 11:20: Immature Granulocyte % (Auto) 0.4, Neutrophils (%) (Auto) 82.7H, Lymphocytes (%) (Auto) 12.6L, Monocytes (%) (Auto) 3.9, Eosinophils (%) (Auto) 0.1, Basophils (%) (Auto) 0.3, Neutrophils # (Auto) 11.3H, Lymphocytes # (Auto) 1.7, Monocytes # (Auto) 0.5, Eosinophils # (Auto) 0.0, Basophils # (Auto) 0.0, Nucleated Red Blood Cells % (auto) 0.0, Anion Gap 11, Glomerular Filtration Rate 47.0, Lactic Acid Level 4.0*H, Calcium Level 9.5, Total Creatine Kinase 103, Creatine Kinase MB 1.5, Creatine Kinase MB Relative Index 1.46, Troponin I < 0.02, VB-Yfw-G-Type Natriuretic Peptide 3944H, Thyroid Stimulating Hormone (TSH) 2.000 10/23/20 11:52: POC pH (Misc Panel) 7.489H, POC Base Excess (Misc Panel) -4.0L, POC Saturated Percent O2 (Misc) 97, POC pO2 (Misc Panel) 83.0, POC pCO2 (Misc Panel) 25.8L, POC HCO3 (Misc Panel) 19.6L, POC Total CO2 (Misc Panel) 20.0L 10/23/20 15:47: Troponin I < 0.02, Thyroid Stimulating Hormone (TSH) 3.160, Activated Partial Thromboplast Time 33.7, Free Thyroxine Index 3.7, Thyroxine (T4) 11.7, Triiodothyronine (T3) Uptake 32 10/23/20 15:48: Lactic Acid Followup at 4 Hours 2.8*H 10/23/20 15:49: Estimated Mean Plasma Glucose 140H, Hemoglobin A1c 6.5 10/23/20 20:49: Bedside Glucose (Misc Panel) 171H 10/23/20 23:18: Activated Partial Thromboplast Time 191.0*H, Troponin I < 0.02 10/24/20 00:00: Urine Opiates Screen NEGATIVE, Urine Methadone Screen NEGATIVE, Urine Barbiturates Screen NEGATIVE, Urine Phencyclidine Screen NEGATIVE, Urine Amphetamines Screen NEGATIVE, Urine Benzodiazepines Screen NEGATIVE, Urine Cocaine Metabolite Screen NEGATIVE, Urine Cannabinoids Screen NEGATIVE 10/24/20 07:02: Nucleated Red Blood Cells % (auto) 0.0, Activated Partial Thromboplast Time 94.5H, Anion Gap 7L, Glomerular Filtration Rate 55.9, Calcium Level 9.0, Magnesium Level 1.7L, XO-Eft-P-Type Natriuretic Peptide 3000H 10/24/20 08:11: Lactic Acid Level 2.8*H 10/24/20 10:44: Lab Scanned Report Miscellaneous Lab CBC/BMP Laboratory Tests 10/23/20 11:20 10/24/20 07:02 Microbiology Microbiology 3/15/21 Blood Culture, Received Pending 10/23/20 Respiratory Virus Panel (PCR) ([facility]) - Final, Complete 10/23/20 Blood Culture, Received Pending GME ATTESTATION GME ATTESTATION My faculty preceptor for this patient encounter was physically present during the encounter and was fully available. All aspects of the patient interview, examination, medical decision making process, and medical care plan development were reviewed and approved by the faculty preceptor. The faculty preceptor is aware and concurs with the plan as stated in the body of this note and will attest to such by his/her cosignature. ATTENDING NOTE I, Bin Braxton MD, have independently examined this patient and performed my own physical exam, as well as reviewed the documentation and edited where necessary. I have discussed in detail with the resident / student the findings and plan of treatment as documented by the resident / student and edited their note. I agree with their findings and treatment plan and have edited their documentation. Ottoniel Santo DO Oct 24, 2020 11:08 BIN BRAXTON MD Oct 25, 2020 14:42
--- NOTE | 2020-10-24 11:41 | ECHO ---
DATE OF PROCEDURE: 10/23/2020 Age: 70 Gender: Female Height: 165 cm Weight: 103 kg REFERRING PHYSICIAN: Dr. Santo INDICATION: Cardiac dysrhythmia, atrial fibrillation. MEASUREMENTS: IVS 1.2 cm LV 5.3 cm LVPW 1.2 cm LA 4.5 cm Aorta 3.4 cm RV 3.3 cm IVC 2.1 cm FINDINGS: This study is of difficult technical quality with challenging visualization. Underlying atrial fibrillation with wide QRS complex and occasional narrow beats. Left ventricle is normal size. Mild left ventricle hypertrophy is noted. There is septal wall motion abnormality probably related to underlying conductive system disease and left bundle branch block morphology. I overall estimate EF around 45 to 50% based on very limited views, and this information may not be very accurate. Right ventricle was poorly seen but grossly does not appear enlarged. Both atria are enlarged. Aortic valve, mitral valve, and tricuspid valve appear grossly normal. Pulmonic valve was not well seen. No pericardial effusion is noted. Inferior vena cava is dilated but does have some collapse with inspiration indicative of mildly elevated central venous pressure. Aortic root, aortic arch, and abdominal aorta appear normal. Doppler interrogation of aortic valve reveals no stenosis or insufficiency. There is mild mitral and trace tricuspid insufficiency. Calculated pulmonary artery pressure is in the high 30s, but this was again based on poor quality of TR jet and should not be considered completely reliable. Evaluation of diastolic function is inconclusive due to underlying atrial fibrillation. CONCLUSIONS: 1. Study is of markedly limited technical quality. Underlying atrial fibrillation with rapid ventricular response and wide QRS complex. 2. Normal LV size with mild LVH, septal wall motion abnormality likely related to conductive system disease, and overall at least mildly reduced LV systolic function. 3. No hemodynamically significant valvular disease. 4. High central venous pressure. 5. At least mild pulmonary hypertension. 6. Biatrial enlargement. MTDD
[2020-10-24] MEDS: APIXABAN 5 MG TAB (ELIQUIS) PO SCH ×2 (11:43→20:14)
[2020-10-24] MEDS: FUROSEMIDE 20 MG TAB PO SCH (11:43)
[2020-10-24] MEDS: MAGNESIUM OXIDE 400MG TAB (MAG-OX) PO SCH ×2 (11:43→20:14)
[2020-10-24] MEDS ORDERED: ELIQ5TAB PO (13:23)
--- NOTE | 2020-10-24 16:59 | ECGEPIP ---
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 Electronically Signed on 10-24-2020 16:59:32 EDT by Yemi Hines
[2020-10-24] MEDS: OMEPRAZOLE 20 MG CAP PO SCH (20:14)
[2020-10-24] MEDS ORDERED: APIXABAN 5 MG TAB (ELIQUIS) PO SCH (21:00)
[2020-10-25] VITALS: BP 117/57
[2020-10-25 04:00] VITALS: BP 101/73
[2020-10-25 06:03] LABS: HEMATOCRIT 36.1 % (36.0-47.0); HEMOGLOBIN 11.2 g/dl (12.0-15.5); MEAN CORPUSCULAR HEMOGLOBIN 25.6 pg (27.0-33.0); MEAN CORPUSCULAR VOLUME 82.4 fl (80.0-96.0); PLATELET COUNT, AUTOMATED 258 10^3/uL (150-450); RED BLOOD COUNT 4.38 10^6/uL (4.00-5.40); WHITE BLOOD COUNT 10.2 10^3/uL (4.0-10.0)
[2020-10-25 06:23] VITALS: BP 124/74
[2020-10-25] MEDS: SLF 3 ML SYR IV SCH (06:23)
[2020-10-25 06:31] LABS: BLOOD UREA NITROGEN 21 MG/DL (7-18); CALCIUM LEVEL 9.1 MG/DL (8.8-10.2); CARBON DIOXIDE LEVEL 30 MEQ/L (21-32); CHLORIDE LEVEL 106 MEQ/L (98-107); CREATININE FOR GFR 0.89 MG/DL (0.55-1.30); GLOMERULAR FILTRATION RATE > 60.0 (>45); GLUCOSE, FASTING 131 MG/DL (70-100); SODIUM LEVEL 142 MEQ/L (136-145)
[2020-10-25 07:11] VITALS: BP 121/66
[2020-10-25] MEDS: HumaLOG INSULIN (NovoLOG) PER UNIT SC SCH (07:30)
[2020-10-25] MEDS ORDERED: CARD1TAB5 PO (09:23)
[2020-10-25] MEDS: APIXABAN 5 MG TAB (ELIQUIS) PO SCH (09:23)
[2020-10-25] MEDS ORDERED: ELIQ5TAB PO (09:23)
[2020-10-25] MEDS ORDERED: FURO20TA2 PO (09:23)
[2020-10-25] MEDS: OCUVITE 1 TAB PO SCH (09:24)
[2020-10-25] MEDS: ATORVASTATIN 10 MG TAB PO SCH (09:24)
[2020-10-25] MEDS: FUROSEMIDE 20 MG TAB PO SCH (09:24)
--- NOTE | 2020-10-25 09:25 | DS.PDOC ---
Discharge Summary General Date of Admission Oct 23, 2020 at 10:36 Date of Discharge 10/25/20 Discharge Summary PROCEDURES PERFORMED DURING STAY: None ADMITTING DIAGNOSES: New onset Afib RVR HTN. Type 2 DM. Diabetic neuropathy to b/l feet. Asthma (not formally diagnosed). Surgical History DISCHARGE DIAGNOSES: New onset Afib RVR HTN. Type 2 DM. Diabetic neuropathy to b/l feet. Asthma (not formally diagnosed). COMPLICATIONS/CHIEF COMPLAINT: New Onset Afib,New Onset Lbbb,Pleural Effusion. HISTORY OF PRESENT ILLNESS AND HOSPITAL COURSE: Patient is a 70 year old female with a PMH of HTN, DM type 2, and asthma (not formally diagnosed) who presented to the ED due to SOB onset (10/19/20). Pt reports that the SOB was a sudden onset that occurred when she was going about her daily activities. SOB is worse with exertion and improved with 10 minutes of rest. She states that this SOB is different than her normal SOB associated with asthma. Pt admits to audible wheezing and chest congestion. She describes the chest congestion as her chest feeling "uncomfortable". She reports that she sleeps on one pillow with the head of her bed elevated due to "feeling anxious" of laying flat. Pt denies any CP, palpitations, fevers, chills, N/V/D, abd pain, leg swelling, visual changes, weight changes, fatigue, or diaphoresis. In the ED, pt was found to be in atrial fibrillation with RVR on EKG and initially had a soft BP thus subsequently started on digoxin. Pt denies any hx of a-fib in the past. On CT chest it was found that pt had an enlarged thyroid R lobe as well as hyperdense nodule in the R thyroid. Thyroid US showed multinodular thyroid with the largest nodule in the lower pole of the R lobe measuring 3.0 cm in the greatest diameter. She denies any hx of hyper/hypothyroidism or other thyroid abnormalities. Small b/l pleural effusions and 1.9 cm bilobed nodular density w as also found on CT chest. CXR showed R lower lobe atelectasis and small pleural effusion. #SOB, multifactorial, likely 2/2 new onset a-fib and heart failure, unspecified - BNP was elevated at 3944 on 10/23/20. - Pt had 2+ pitting edema c/w lasix on discharge q48H #Nonvalvular atrial fibrillation - R/o ischemic causes- EKG and trops noted. LBBB - Pt started on IV cardizem - Will d/c home with extended release cardizem 120mg PO daily - See ECHO results - full report below - f/u with Dr. Perez (cardiology)- Referral made- cardiac stress test outpt and f/u with Electrophysiology - Heparin gtt and transitioned to eliquis- will c/w eliquis 5mg PO BID and f/u with PCP Dr. Tico allen within 2 weeks of discharge #incidental finding of thyroid nodule - See imaging CT scan and thyroid U/S - thyroid panel WNL - Referral to Dr Hale endocrinology for outpt f/u #Small Pleural effusion - CXR on 10/23/20 showed R lower lobe atelectasis and small pleural effusion. - CT Chest on 10/23/20 showed small b/l pleural effusions. - lasix 20mg q48h #Heart failure, unspecified - Unspecified and under evaluation. - BNP was elevated at 3944 on 10/23/20. - Pt had 2+ pitting edema and SOB on PE. - Will start pt on Lasix. #Lactic acidosis type A - Resolved on discharge #R pleural base nodule - CT Chest on 10/23/20 showed 1.9 cm bilobed nodular density along the anterior margin of the R pleural effusion, artifact from the pleural effusion vs true lung nodule. - Will have pt follow up PCP outpatient regarding this nodule. #R thyroid nodule - CT chest (10/23/20) returned to show enlarged thyroid R lobe as well as hyperdense nodule in R thyroid. - Thyroid US (10/23/20) showed multinodular thyroid with the largest nodule in the lower pole of the R lobe, measuring 3 cm in the greatest diameter. - Thyroid panel pending. - Will have patient follow up outpatient regarding thyroid nodule. #Hypertension - Pt was hypotensive on her home bp regimen while on cardizem for rate control of Afib RVR - D/C'd patient on HCTZ, bisoprolol, and lisinopril - Added Lasix 20mg PO daily to cardizem PO during inpatient - On discharge, will start on extended release cardizem and lasix 20mg q48h- to follow with PCP within 2 weeks of hospital dc #Type 2 DM - Consistent carb diet. - Hgb A1C pending- f.u with PCP - C/w home meds #Chronic back pain - c/w home med DVT Prophylaxis: Teds and sequentials.eliquis CODE STATUS: FULL ALLERGIES: Please see below. PHYSICAL EXAMINATION: Constitutional: Awake and alert, in no apparent distress ENT: Sclera are clear. Mucosa is moist. Respiratory: Lungs CTA bilaterally. No respiratory distress Cardiovascular: Irregularly irregular, displacement of PMI, no JVD, no m/g/r appreciated. Gastrointestinal: Abdomen is soft, non distended, non tender, BS present. Musculoskeletal: trace lower extr edema, improved Neurologic: No focal neurological deficit. Mental Status: A&O x3, normal affect Skin: no clubbing or cyanosis LABORATORY DATA: Please see below. IMAGING: Thyroid U/S IMPRESSION: Multinodular thyroid. The largest nodule is in the lower pole the right lobe measuring 3.0 cm in greatest diameter. CHEST CT IMPRESSION: Small bilateral pleural effusions. The right pleural effusion is slightly larger. 1.9 cm bilobed nodular density along the anterior margin of the right pleural effusion, artifact from the pleural effusion versus true lung nodule. Enlarged mediastinal nodes. Enlarged thyroid right lobe. There is also a hyperdense nodule in the thyroid right lobe. Consider thyroid ultrasound for follow-up. Cholelithiasis without biliary duct dilatation. 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 CXR: Right lower lobe atelectasis and small pleural effusion ECHO October 2020 CONCLUSIONS: 1. Study is of markedly limited technical quality. Underlying atrial fibrillation with rapid ventricular response and wide QRS complex. 2. Normal LV size with mild LVH, septal wall motion abnormality likely related to conductive system disease, and overall at least mildly reduced LV systolic function. 3. No hemodynamically significant valvular disease. 4. High central venous pressure. 5. At least mild pulmonary hypertension. 6. Biatrial enlargement. PROGNOSIS: Fair ACTIVITY: As tolerated DIET: 2g Na and consistent carb diet DISPOSITION: Fair DISCHARGE INSTRUCTIONS: - f/u with cardio endo within 2 weeks of discharge - eliquis 5mg PO BID and lasix 20mg q48 - d/cd hctz, lisinopril, bisoprolol due to hypotension - continue cardizem 120 mg daily - f/u with pcp for optimal bp regimen and post hospital d/c. - if conditions worsen, instructed to go to ER again DISCHARGE CONDITION: Fair TIME SPENT ON DISCHARGE: Greater than 30 minutes. Vital Signs/I&Os Vital Signs Date Time Temp Pulse Resp B/P (MAP) Pulse Ox O2 Delivery O2 Flow Rate FiO2 10/25/20 07:11 97.2 93 18 121/66 (84) 97 Room Air I&O- Last 24 Hours up to 6 AM 10/25/20 06:00 Intake Total 1080 ml Output Total 1200 ml Balance -120 ml Laboratory Data Labs 24H Laboratory Tests 2 10/24/20 10:44: Lab Scanned Report Miscellaneous Lab 10/24/20 11:39: Bedside Glucose (Misc Panel) 101 10/24/20 12:45: Lactic Acid Followup at 4 Hours 1.6 10/24/20 17:47: Bedside Glucose (Misc Panel) 130H 10/24/20 20:13: Bedside Glucose (Misc Panel) 150H 10/25/20 05:10: Nucleated Red Blood Cells % (auto) 0.0, Anion Gap 6L, Glomerular Filtration Rate > 60.0, Calcium Level 9.1 CBC/BMP Laboratory Tests 10/25/20 05:10 FSBS Laboratory Tests Test 10/24/20 11:39 10/24/20 17:47 10/24/20 20:13 Range/Units Bedside Glucose (Misc Panel) 101 130 150 80-115 MG/DL Microbiology Microbiology 10/23/20 Blood Culture - Preliminary, Resulted No growth after 24 hours . All specim... 10/23/20 Respiratory Virus Panel (PCR) ([facility]) - Final, Complete 10/23/20 Blood Culture - Preliminary, Resulted No growth after 24 hours . All specim... Discharge Medications Scheduled Apixaban (Eliquis) 5 Mg Tablet, 5 MG PO BID Atorvastatin Calcium (Atorvastatin Calcium) 10 Mg Tablet, 10 MG PO DAILY, (Reported) Diltiazem HCl (Cardizem LA) 120 Mg Tab.er.24h, 120 MG PO DAILY for high blood pressure Flaxseed Oil (Flaxseed) 1,000 Mg Capsule, 1 CAP PO DAILY, (Reported) Magnesium Chloride (Mag64) 64 Mg Tablet.dr, 128 MG PO DAILY, (Reported) Omeprazole (Omeprazole) 40 Mg Capsule.dr, 40 MG PO QHS, (Reported) Sitagliptin Phos/Metformin HCl (Janumet Xr 100-1,000 mg Tablet) 1 Each Tbmp.24hr, 1 TAB PO DAILY, (Reported) Vit A/Vit C/Vit E/Zinc/Copper (Preservision Areds Tablet) 1 Each Tablet, 1 TAB PO DAILY, (Reported) Scheduled PRN Acetaminophen (Acetaminophen) 500 Mg Tablet, 1,000 MG PO Q6H PRN for PAIN, (Reported) Furosemide (Lasix) 20 Mg Tablet, 20 MG PO Q48HP PRN for SEE LABEL COMMENTS Meloxicam (Mobic) 7.5 Mg Tablet, 7.5 MG PO DAILY PRN for PAIN, (Reported) WITH FOOD Allergies Coded Allergies: morphine (Verified Adverse Reaction, Mild, feels strange, 03/29/20) procaine (Verified Adverse Reaction, Mild, PALPITATIONS, 03/29/20) GME ATTESTATION GME ATTESTATION My faculty preceptor for this patient encounter was physically present during the encounter and was fully available. All aspects of the patient interview, examination, medical decision making process, and medical care plan development were reviewed and approved by the faculty preceptor. The faculty preceptor is aware and concurs with the plan as stated in the body of this note and will attest to such by his/her cosignature. ATTENDING NOTE I, Bin Braxton MD, have independently examined this patient and performed my own physical exam, as well as reviewed the documentation and edited where necessary. I have discussed in detail with the resident / student the findings and plan of treatment as documented by the resident / student and edited their note. I agree with their findings and treatment plan and have edited their documentation. Ottoniel Santo DO Oct 25, 2020 09:25 BIN BRAXTON MD Oct 25, 2020 14:51
[2020-10-25] MEDS ORDERED: LASI20TA3 PO (09:38)
== END 2020-10-25 10:16 | disposition home or self-care (01) ==
LOC: M ED 10:35 → M ED INP 10:36 → ENRESERV 15:31 → M PCU 16:07
PROVIDERS: ADMIT Internal Medicine; ATTEND Internal Medicine
DX: I48.91 Unspecified atrial fibrillation (principal); I11.0 Hypertensive heart disease with heart failure; E11.40 Type 2 diabetes mellitus with diabetic neuropathy, unspecified; J45.909 Unspecified asthma, uncomplicated; I44.7 Left bundle-branch block, unspecified; R06.02 Shortness of breath; E04.1 Nontoxic single thyroid nodule; J90 Pleural effusion, not elsewhere classified; I50.30 Unspecified diastolic (congestive) heart failure; R91.8 Other nonspecific abnormal finding of lung field; E83.42 Hypomagnesemia; E87.2 Acidosis; M54.9 Dorsalgia, unspecified; G89.29 Other chronic pain; M19.90 Unspecified osteoarthritis, unspecified site; Z79.899 Other long term (current) drug therapy; Z79.01 Long term (current) use of anticoagulants; Z88.5 Allergy status to narcotic agent; Z88.4 Allergy status to anesthetic agent; Z87.891 Personal history of nicotine dependence
CPT/HCPCS: 36415; 71045; 71250; 76536; 80048; 80307; 82550; 82553; 82803; 83036; 83605; 83735; 83880; 84436; 84443; 84479; 84484; 85025; 85027; 85730; 87040; 87798; 93005; 93041; 93306; 96374; 96375; 96376; 99285; G0378; J1160; J1644; J1940

== ENCOUNTER 2020-11-01 11:49 | Inpatient (IN) | payer MEDICARE, OTHER ==
[~2020-11-01] VITALS: Ht 167.6 cm; Wt 114.4 kg
[~2020-11-01 11:49] MED LIST changes: +ACET-683 PO; +ASPI81TA26 PO; +ATOR1TAB19 PO; +BISO5TAB14 PO; +CARD1TAB5 PO; +ELIQ5TAB PO; +FURO20TA2 PO; +GNP1000C11 PO; +HYDR-3490 PO; +LASI20TA3 PO; +MAG; +MAGN64TASA PO; +MOBI4TAB PO; +OCUVTAB4 PO; +OMEP40CA97 PO
[2020-11-01 12:17] LABS: BASO % 0.2 % (0.0-1.0); EOS # 0.1 10^3/uL (0.0-0.5); EOS % 0.3 % (0.0-3.0); HEMATOCRIT 40.6 % (36.0-47.0); HEMOGLOBIN 12.4 g/dl (12.0-15.5); LYMPH # 1.3 10^3/uL (1.5-5.0); LYMPH % 7.7 % (24.0-44.0); MEAN CORPUSCULAR HEMOGLOBIN 25.4 pg (27.0-33.0); MEAN CORPUSCULAR HGB CONC 30.5 g/dl (32.0-36.5); MEAN CORPUSCULAR VOLUME 83.2 fl (80.0-96.0); MONO # 0.5 10^3/uL (0.0-0.8); MONO % 3.1 % (2.0-8.0); NEUTROPHILS # 14.5 10^3/uL (1.5-8.5); NEUTROPHILS % 88.2 % (36.0-66.0); PLATELET COUNT, AUTOMATED 294 10^3/uL (150-450); RED BLOOD COUNT 4.88 10^6/uL (4.00-5.40); WHITE BLOOD COUNT 16.4 10^3/uL (4.0-10.0)
--- NOTE | 2020-11-01 12:27 | REP ---
INDICATION: DYSPNEA/COUGH. COMPARISON: 10/23/2020. TECHNIQUE: Portable AP chest with the patient upright. FINDINGS: The effacement of the right costophrenic angle identified on the comparison study has resolved. There is diffuse interstitial coarsening that is increased from the prior study. Cardiac size is upper normal, unchanged. The jonny, mediastinum, and skeletal structures are unremarkable. IMPRESSION: Diffuse interstitial coarsening appears to have increased from the prior study. There are no focal infiltrates. The effacement of the right costophrenic angle on the previous study has resolved. <Electronically signed by Torres Ness > 11/01/20 [id number]
[2020-11-01] MEDS ORDERED: NS 1,000 ML IV SCH (12:30)
[2020-11-01 12:52] LABS: ALBUMIN 3.6 GM/DL (3.2-5.2); ALT/SGPT 11 U/L (12-78); BILIRUBIN,DIRECT 0.3 MG/DL (0.0-0.2); BLOOD UREA NITROGEN 14 MG/DL (7-18); CALCIUM LEVEL 9.5 MG/DL (8.8-10.2); CARBON DIOXIDE LEVEL 25 MEQ/L (21-32); CHLORIDE LEVEL 103 MEQ/L (98-107); CK-MB VALUE MASS < 1.0 NG/ML (<3.6); CPK CREATINE PHOSPHOKINASE 72 U/L (26-192); CREATININE FOR GFR 0.99 MG/DL (0.55-1.30); GLOMERULAR FILTRATION RATE 59.2 (>45); GLUCOSE, FASTING 230 MG/DL (70-100); MB/CK RELATIVE INDEX 1.39 (< OR =4); POTASSIUM SERUM 3.8 MEQ/L (3.5-5.1); SODIUM LEVEL 140 MEQ/L (136-145); TOTAL PROTEIN 7.6 GM/DL (6.4-8.2); TROPONIN I < 0.02 NG/ML (< 0.10)
[2020-11-01] MEDS ORDERED: DIGOXIN INJ 0.5 MG/2 ML AMP (J1160) IV STA (14:57)
[2020-11-01 15:18] LABS: NT-PRO BNP 1582 PG/ML (<125)
[2020-11-01] MEDS ORDERED: GLUCAGON INJ 1MG VIAL SC PRN (15:20)
[2020-11-01] MEDS ORDERED: DEXTROSE 50% 50 ML SYRINGE IV PRN (15:20)
[2020-11-01] MEDS ORDERED: ACETAMINOPHEN TAB 650MG DOSE (2X325MG) PO PRN (15:20)
[2020-11-01] MEDS ORDERED: MOM 30ML SUSPENSION UDC PO PRN (15:20)
[2020-11-01] MEDS ORDERED: GLUCOSE 4GM CHEW TABLET PO PRN (15:20)
[2020-11-01] MEDS ORDERED: AMIO200T3 PO (15:48)
[2020-11-01] MEDS ORDERED: DILT180C78 PO (15:48)
[2020-11-01] MEDS ORDERED: FURO20TA2 PO (15:48)
[2020-11-01] MEDS ORDERED: ELIQ5TAB PO (15:48)
[2020-11-01] MEDS ORDERED: OMEPRAZOLE 20 MG CAP PO PRN (15:50)
--- NOTE | 2020-11-01 15:57 | HPEPDOC ---
[facility] Medical History & Physical Date of Admission Nov 01, 2020 Date of Service: Nov 01, 2020 History and Physical Chief complaint: Who presented to the emergency room with complaints of SOB History of present illness: Patient is a 70-year-old female who presented to the emergency room with complaints of shortness of breath. Patient has recently been admitted to [facility] on 10/23-10/25 for shortness of breath and palpitations, found to have new onset atrial fibrillation. Patient was ultimately transitioned to Eliquis and Cardizem 120mg extended release. Patient ultimately followed up with Dr. Perez on 10/31. Patient was noted to have a heart rate in the 140s and she was advised to go to the ER, however was against the idea. Patient had her dose of Cardizem increased to 180mg as well as amiodarone added. Patient reported that on the evening, she was experiencing some shortness of breath with a nonproductive cough. She had taken Chlorpheneramine / Tylenol and her Ventolin inhaler without relief. Patient didnt get much sleep and woke up in the morning with persistent symptoms that prompted her to come to the emergency room for further evaluation. Currently patient reports some shortness of breath. Reports a non-productive cough. Denies any chest pain or palpitations, nausea, vomiting, abdominal pain that the patient, diarrhea, or urinary discomfort or recent fevers or chills. Past Medical History: Chronic atrial fibrillation Left bundle branch block HTN DLP NIDDM2 Seasonal allergies Chronic Asthma GERD Past Surgical History: 2 sections Bilateral hip replacements Right rotator cuff surgery Right carpal tunnel surgery Hysterectomy Allergies: See below Medications: See below Family History: - Mother with a history of non-Hodgkins lymphoma - Father with a history of prostate cancer and lung cancer Social History: - Denies the use of illicit drugs; rarely uses alcohol. 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 [address] Review of Systems: 10 point review of systems complete, all negative otherwise stated in HPI Physical exam: - Vitals: BP [139/63], HR [118], RR [16], Sat [100%RA], Temp [98.2F] - General: Sitting up in bed, Speaking in full sentences, AAOx3 - HEENT: NC, AT, PERRLA - CVS: IrIr, +S1S2 - Lungs: Fair air entry bilaterally, No appreciable wheezing / rales / rhonchi - Abdomen: Soft, Non-distended, Non-tender - Extremities: No lower extremity edema, No calf tenderness - Neuro: No focal motor or sensory deficit - Skin: No visible rashes Labs: See below Imaging: CXR 11/01: Diffuse interstitial coarsening appears to have increased from the prior study. There are no focal infiltrates. The effacement of the right costophrenic angle on the previous study has resolved. EKG: See below Assessment and Plan: Shortness of breath - likely 2/2 uncontrolled A fib with RVR - History of chronic atrial fibrillation diagnosed on 10/23/2020 - Currently patient reports some SOB, but denies any palpitations or chest pain - Physical without signs of fluid overload - EKG reviewed - Troponin x1 negative; will continue to trend - s/p Cardizem 20mg IV x 2 doses, Cardizem 30mg PO in the ER - Was recently started (10/31) on Amiodarone; will continue - Will stop Cardizem; will start metoprolol tartrate with holding parameters - Will continue with full anticoagulation with Eliquis - Case discussed and consulted Dr. Perez; plan for CELIA and possible cardioversion tomorrow - Will keep NPO post-midnight Left bundle branch block HTN - BP normotensive currently - CXR noted above - Will hold diuretics for now - Will start Metoprolol with hold parameters DLP - c/w Atorvastatin NIDDM2 - Will start ISS Seasonal allergies / Chronic Asthma - No evidence of wheezing / exacerbation - c/w inhaled therapy as ordered GERD - c/w Omeprazole DVT prophylaxis - Will c/w full anticoagulation with Eliquis Vital Signs Vital Signs Date Time Temp Pulse Resp B/P (MAP) Pulse Ox O2 Delivery O2 Flow Rate FiO2 11/01/20 13:47 135 139/63 11/01/20 11:57 22 97 Room Air 11/01/20 11:49 98.2 Laboratory Data Labs 24H Laboratory Tests 2 11/01/20 12:06: Immature Granulocyte % (Auto) 0.5, Neutrophils (%) (Auto) 88.2H, Lymphocytes (%) (Auto) 7.7L, Monocytes (%) (Auto) 3.1, Eosinophils (%) (Auto) 0.3, Basophils (%) (Auto) 0.2, Neutrophils # (Auto) 14.5H, Lymphocytes # (Auto) 1.3L, Monocytes # (Auto) 0.5, Eosinophils # (Auto) 0.1, Basophils # (Auto) 0.0, Nucleated Red Blood Cells % (auto) 0.0, Anion Gap 12, Glomerular Filtration Rate 59.2, Calcium Level 9.5, Total Bilirubin 1.0, Direct Bilirubin 0.3H, Aspartate Amino Transf (AST/SGOT) 13, Alanine Aminotransferase (ALT/SGPT) 11L, Alkaline Phosphatase 115, Total Creatine Kinase 72, Creatine Kinase MB < 1.0, Creatine Kinase MB Relative Index 1.39, Troponin I < 0.02, RC-Xrt-V-Type Natriuretic Peptide 1582H, Total Protein 7.6, Albumin 3.6, Albumin/Globulin Ratio 0.9L CBC/BMP Laboratory Tests 11/01/20 12:06 Microbiology Microbiology 11/01/20 Respiratory Virus Panel (PCR) ([facility]), Received Pending Home Medications Scheduled Amiodarone HCl (Amiodarone HCl) 200 Mg Tablet, 200 MG PO BID Apixaban (Eliquis) 5 Mg Tablet, 5 MG PO BID Atorvastatin Calcium (Atorvastatin Calcium) 10 Mg Tablet, 10 MG PO DAILY Diltiazem Hcl (Diltiazem 24Hr ER) 180 Mg Cap.er.24h, 180 MG PO DAILY Flaxseed Oil (Flaxseed) 1,000 Mg Capsule, 1,000 MG PO DAILY Furosemide (Furosemide) 20 Mg Tablet, 20 MG PO Q2D Magnesium Chloride (Mag64) 64 Mg Tablet.dr, 128 MG PO DAILY Sitagliptin Phos/Metformin HCl (Janumet Xr 100-1,000 mg Tablet) 1 Each Tbmp.24hr, 1 TAB PO DAILY Vit A/Vit C/Vit E/Zinc/Copper (Preservision Areds Tablet) 1 Each Tablet, 1 TAB PO DAILY Scheduled PRN Acetaminophen (Acetaminophen) 500 Mg Tablet, 1,000 MG PO Q6H PRN for PAIN Meloxicam (Mobic) 7.5 Mg Tablet, 7.5 MG PO DAILY PRN for PAIN WITH FOOD Omeprazole (Omeprazole) 40 Mg Capsule.dr, 40 MG PO QHS PRN for HEARTBURN Allergies Coded Allergies: morphine (Verified Adverse Reaction, Mild, feels strange, 03/29/20) procaine (Verified Adverse Reaction, Mild, PALPITATIONS, 03/29/20) JAMEY BRIDGES MD Nov 01, 2020 15:57
[2020-11-01 17:30] VITALS: BP 144/76
[2020-11-01] MEDS: HumaLOG INSULIN (NovoLOG) PER UNIT SC SCH ×2 (17:30→20:37)
[2020-11-01] MEDS: METOPROLOL TART 50 MG TAB PO SCH (18:02)
[2020-11-01] MEDS ORDERED: METOPROLOL 5 MG/5 ML VIAL IV STA (18:11)
[2020-11-01 18:31] LABS: CK-MB VALUE MASS < 1.0 NG/ML (<3.6); CPK CREATINE PHOSPHOKINASE 60 U/L (26-192); MB/CK RELATIVE INDEX 1.67 (< OR =4); TROPONIN I < 0.02 NG/ML (< 0.10)
[2020-11-01] MEDS: APIXABAN 5 MG TAB (ELIQUIS) PO SCH (20:36)
[2020-11-01] MEDS: AMIODARONE 200 MG TAB (PACERONE) PO SCH (20:36)
[2020-11-01] MEDS: DOCUSATE SODIUM 100MG CAPSULE PO SCH (20:37)
--- NOTE | 2020-11-01 21:08 | ECGEPIP ---
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
[2020-11-01 22:00] VITALS: BP 123/60
[2020-11-02] VITALS (8 sets, daily range): BP systolic 106–138; BP diastolic 53–79; O2SAT 90
[2020-11-02 00:54] LABS: CK-MB VALUE MASS < 1.0 NG/ML (<3.6); CPK CREATINE PHOSPHOKINASE 56 U/L (26-192); MB/CK RELATIVE INDEX 1.79 (< OR =4); TROPONIN I < 0.02 NG/ML (< 0.10)
[2020-11-02] MEDS: METOPROLOL TART 50 MG TAB PO SCH ×2 (05:03)
[2020-11-02 05:59] LABS: BASO % 0.5 % (0.0-1.0); EOS # 0.2 10^3/uL (0.0-0.5); EOS % 2.3 % (0.0-3.0); HEMATOCRIT 33.3 % (36.0-47.0); HEMOGLOBIN 10.1 g/dl (12.0-15.5); LYMPH # 1.5 10^3/uL (1.5-5.0); LYMPH % 18.7 % (24.0-44.0); MEAN CORPUSCULAR HEMOGLOBIN 25.2 pg (27.0-33.0); MEAN CORPUSCULAR HGB CONC 30.3 g/dl (32.0-36.5); MONO # 0.6 10^3/uL (0.0-0.8); MONO % 6.9 % (2.0-8.0); NEUTROPHILS # 5.9 10^3/uL (1.5-8.5); NEUTROPHILS % 71.2 % (36.0-66.0); PLATELET COUNT, AUTOMATED 225 10^3/uL (150-450); RED BLOOD COUNT 4.01 10^6/uL (4.00-5.40); WHITE BLOOD COUNT 8.3 10^3/uL (4.0-10.0)
[2020-11-02 06:12] LABS: BLOOD UREA NITROGEN 14 MG/DL (7-18); CALCIUM LEVEL 8.6 MG/DL (8.8-10.2); CARBON DIOXIDE LEVEL 27 MEQ/L (21-32); CHLORIDE LEVEL 108 MEQ/L (98-107); CREATININE FOR GFR 0.84 MG/DL (0.55-1.30); GLOMERULAR FILTRATION RATE > 60.0 (>45); GLUCOSE, FASTING 129 MG/DL (70-100); MAGNESIUM LEVEL 1.9 MG/DL (1.8-2.4); POTASSIUM SERUM 4.1 MEQ/L (3.5-5.1); SODIUM LEVEL 142 MEQ/L (136-145)
[2020-11-02] MEDS: HumaLOG INSULIN (NovoLOG) PER UNIT SC SCH ×4 (07:30→21:00)
[2020-11-02] MEDS ORDERED: METOPROLOL TART 25 MG TABLET PO ONE ×2 (08:25→19:20)
[2020-11-02] MEDS: APIXABAN 5 MG TAB (ELIQUIS) PO SCH ×2 (08:54→21:54)
[2020-11-02] MEDS: AMIODARONE 200 MG TAB (PACERONE) PO SCH ×2 (08:54→21:54)
[2020-11-02] MEDS: OCUVITE 1 TAB PO SCH (08:54)
[2020-11-02] MEDS: ATORVASTATIN 10 MG TAB PO SCH (08:54)
[2020-11-02] MEDS: DOCUSATE SODIUM 100MG CAPSULE PO SCH ×2 (08:55→21:00)
[2020-11-02] MEDS ORDERED: METOPROLOL SUCC (TopROL XL) 100MG *XL* TAB PO SCH (09:00)
--- NOTE | 2020-11-02 09:28 | CR ---
CONSULTATION DATE: 11/02/2020 REASON FOR CONSULTATION: I was asked by Dr. Madera to see Ms. Hooks due to atrial fibrillation with rapid ventricular response. She is previously known to me. We saw her in our office for the first time the day before. She had a recent admission to this facility for a previous AF with RVR. She was started on Cardizem extended release 120 mg daily and was anticoagulated and discharged home. A follow-up in our office a few days later revealed uncontrolled rate. She did not feel that bad and did not want to return to the hospital and consequently we tried to manage her condition conservatively on an outpatient basis. We added oral amiodarone plus increased the Cardizem to 180 mg daily but before she even took her first dose she came to the ER the following day because her condition deteriorated. She felt more short of breath and she felt more palpitations. In the Emergency Room, she received several additional doses of Cardizem and also received a single dose of IV Digoxin but ultimately we made a decision to switch from Cardizem to metoprolol and she received initially 50 and then additional 25 mg. Overnight, her heart rate has been well-controlled on an average based on telemetry monitoring around 70 to 75 beats per minute with occasional rare spike. This morning the patient tells me she is feeling much better. She still has slight sensation of palpitations but she does appreciate that there has been an improvement. She has not done much ambulation today as yet. She denies any chest pain. Denies any nausea, vomiting or other cardiac symptoms. PAST MEDICAL HISTORY: 1. Atrial fibrillation, persistent, probably not chronic. 2. Left bundle branch block, most likely related. 3. Hypertension. 4. Dyslipidemia. 5. Type 2 diabetes. 6. Asthma. 7. GERD. PAST SURGICAL HISTORY: section x2, bilateral hip replacement, right rotator cuff, right carpal tunnel and hysterectomy. SOCIAL HISTORY: The patient quit smoking many years ago. Has about 15 pack years. No alcohol. She is retired. No drug use. FAMILY HISTORY: No history of cardiovascular disease. Both of the parents of cancer related diagnoses. OUTPATIENT MEDICATIONS: 1. Amiodarone 200 mg twice a day. 2. Apixaban 5 mg twice a day. 3. Atorvastatin 10 mg daily. 4. Extended release Cardizem 180 mg daily. 5. Furosemide 20 mg every other day. 6. Magnesium chloride. 7. Mobic 7.5 as needed. 8. Omeprazole 40 mg daily. 9. Janumet 100/1000 daily. 10.Multivitamin. REVIEW OF SYSTEMS: She denies any recent fever, chills, nausea, vomiting or diarrhea. She does have [employer] Class III dyspnea. No chest pain. She has had palpitations. No orthopnea or wandy PND. Mild peripheral edema. No bleeding. The rest as per HPI or negative. PHYSICAL EXAMINATION: Mrs. Hooks is an elderly obese female. She is sitting by her PCU bed in no distress. She is able to communicate freely without any obvious distress. Blood pressure is 106/53, heart rate has been from 60s to 80s, atrial fibrillation. She has been afebrile. Saturation 92% on room air. She is alert and oriented, and appropriate. Her lungs are clear. Heart exam: An irregularly irregular rhythm. I do not appreciate a distinct gallop or murmur. JVP does not appear elevated. Abdomen is obese and soft. Extremities have trace edema. Neurologically, she is intact. LABORATORY DATA: Basic metabolic panel is normal with the exception of sodium of 129. She had three sets of cardiac enzymes that were negative. Terminal pro-BNP that was drawn on admission to the Emergency Room was 1582. CBC as of today, hemoglobin is 10.1, hematocrit 33 and platelet count 225,000 which is decreased since yesterday. Chest x-ray that was performed in the Emergency Room yesterday reveals potential congestive heart failure with some interstitial fine changes. I do not appreciate any obvious cardiomegaly. There is no pleural effusion. An electrocardiogram performed yesterday in the Emergency Room revealed atrial fibrillation with ventricular rate of 160 beats per minute and left bundle branch block. ASSESSMENT AND PLAN: Mrs. Hooks is a 70-year-old female who has probably relatively recent onset of atrial fibrillation that is still not well rate controlled. She was on an outpatient basis managed by [facility] and unfortunately it was not overly effective even though the dose was not quite high. We switched her to metoprolol that seems much more effective in slowing her down. I am going to attempt to transition her to long-acting preparation right away this morning and I will go with 100 mg daily, hopefully with a combination of amiodarone, then will gradually increase it for potency and will accomplish rate control rapidly. I still prefer that she is held in the hospital at least one more day to make sure that the rate control is really sufficient before we discharge her home. My original plan was to perform CELIA cardioversion but because it seems that the rate control is working well I think it is probably more advantageous wait with cardioversion until she is anticoagulated for several weeks plus her amiodarone exerts more potency which will decrease the risk of relapse. Otherwise, as far as congestive heart failure is concerned, she had an echocardiogram during her prior admission that revealed probably mildly reduced left ventricular systolic function but it was in the setting of left bundle branch block and the quality of the study was rather poor. I am pleasantly surprised that watching telemetry strips when her heart rate slows down her QRS complex becomes narrow so she probably has only rate related left bundle branch block which is certainly a more favorable situation. I will be off for tomorrow and the weekend but Dr. Kamara will provide coverage tomorrow as necessary. I expect that she will be able to be discharged home tomorrow. TEA
--- NOTE | 2020-11-02 09:59 | IPNPDOC ---
Text Note Date of Service The patient was seen on 11/02/20. NOTE Subjective: Patient is a 70-year-old female who presented to the emergency room with complaints of shortness of breath. Patient has recently been admitted to [facility] on 10/23-10/25 for shortness of breath and palpitations, found to have new onset atrial fibrillation. Patient was ultimately transitioned to Eliquis and Cardizem 120mg extended release. Patient ultimately followed up with Dr. Perez on 10/31. Patient was noted to have a heart rate in the 140s and she was advised to go to the ER, however was against the idea. Patient had her dose of Cardizem increased to 180mg as well as amiodarone added. Patient was admitted to the hospital service for further evaluation and treatment. Patient was seen and examined at the bedside. Patient denies any chest pain, short of breath, palpitations. Reports of that they are feeling better. Denies any nausea, vomiting, abdominal pain, diarrhea, or discomfort with urination. Objective: Vitals (See below) General: Lying in bed, no acute distress, comfortable, AAOx3 HEENT: NC, AT CVS: IrIr, +S1S2 Lungs: Fair air entry b/l, no appreciable wheezing, rhonchi or rales Abdomen: Soft, nondistended and nontender Extremities: Lower extremities are without any edema, - Calf tenderness Imaging: CXR 11/01: Diffuse interstitial coarsening appears to have increased from the prior study. There are no focal infiltrates. The effacement of the right costophrenic angle on the previous study has resolved. Assessment and plan: s/p Shortness of breath - likely 2/2 uncontrolled A fib with RVR - History of chronic atrial fibrillation diagnosed on 10/23/2020 - Currently patient reports some SOB, but denies any palpitations or chest pain - Patient's heart rate has improved since yesterday evening - Troponin x3 negative - s/p Cardizem 20mg IV x 2 doses, Cardizem 30mg PO in the ER - c/w Amiodarone and Metoprolol; has been adjusted to long acting this morning - c/w full anticoagulation with Eliquis - Dr. Perez on consultation; will hold off on CELIA given that her HR has improved Left bundle branch block HTN - BP normotensive currently - CXR noted above - Hold diuretics DLP - c/w Atorvastatin NIDDM2 - c/w ISS Morbid obesity - BMI of 40.5 - Complicating medical care Seasonal allergies / Chronic Asthma - No evidence of wheezing / exacerbation - c/w inhaled therapy as ordered GERD - c/w Omeprazole DVT prophylaxis - c/w full anticoagulation with Eliquis Disposition: - Anticipate DC within 24 hours VS,Fishbone, I+O VS, Fishbone, I+O Laboratory Tests 11/01/20 12:06 11/02/20 05:30 Vital Signs Date Time Temp Pulse Resp B/P (MAP) Pulse Ox O2 Delivery O2 Flow Rate FiO2 11/02/20 08:55 99 119/61 11/02/20 08:00 98.3 18 93 Room Air I&O- Last 24 Hours up to 6 AM 11/02/20 06:00 Intake Total 750 ml Balance 750 ml JAMEY BRIDGES MD Nov 02, 2020 09:59
[2020-11-02] MEDS ORDERED: METOPROLOL TART 50 MG TAB PO SCH (12:00)
[2020-11-02] MEDS ORDERED: METOPROLOL 5 MG/5 ML VIAL As Ordered ONE (19:00)
[2020-11-02] MEDS ORDERED: METOPROLOL 5 MG/5 ML VIAL IV STA (19:03)
[2020-11-02] MEDS ORDERED: ISOVUE-370 76% 100ML VIAL As Ordered ONE (19:13)
[2020-11-02] MEDS ORDERED: FUROSEMIDE 40MG/4ML VIAL (J1940) IV ONE (19:15)
[2020-11-02 19:45] LABS: BASO # 0.1 10^3/uL (0.0-0.2); BASO % 0.5 % (0.0-1.0); EOS # 0.2 10^3/uL (0.0-0.5); EOS % 1.3 % (0.0-3.0); HEMATOCRIT 45.7 % (36.0-47.0); LYMPH # 1.6 10^3/uL (1.5-5.0); LYMPH % 9.4 % (24.0-44.0); MEAN CORPUSCULAR HEMOGLOBIN 24.9 pg (27.0-33.0); MEAN CORPUSCULAR HGB CONC 29.3 g/dl (32.0-36.5); MEAN CORPUSCULAR VOLUME 84.8 fl (80.0-96.0); MONO # 0.3 10^3/uL (0.0-0.8); MONO % 1.9 % (2.0-8.0); NEUTROPHILS # 15.1 10^3/uL (1.5-8.5); NEUTROPHILS % 86.4 % (36.0-66.0); PLATELET COUNT, AUTOMATED 287 10^3/uL (150-450); RED BLOOD COUNT 5.39 10^6/uL (4.00-5.40); WHITE BLOOD COUNT 17.5 10^3/uL (4.0-10.0)
[2020-11-02 19:46] LABS: HEMOGLOBIN 13.4 g/dl (12.0-15.5)
[2020-11-02 20:10] LABS: ALBUMIN 3.4 GM/DL (3.2-5.2); ALT/SGPT 11 U/L (12-78); BILIRUBIN,TOTAL 0.8 MG/DL (0.2-1.0); BLOOD UREA NITROGEN 16 MG/DL (7-18); CALCIUM LEVEL 9.1 MG/DL (8.8-10.2); CARBON DIOXIDE LEVEL 26 MEQ/L (21-32); CHLORIDE LEVEL 106 MEQ/L (98-107); CK-MB VALUE MASS < 1.0 NG/ML (<3.6); CPK CREATINE PHOSPHOKINASE 59 U/L (26-192); CREATININE FOR GFR 0.96 MG/DL (0.55-1.30); GLOMERULAR FILTRATION RATE > 60.0 (>45); GLUCOSE, FASTING 148 MG/DL (70-100); MAGNESIUM LEVEL 2.1 MG/DL (1.8-2.4); MB/CK RELATIVE INDEX 1.69 (< OR =4); POTASSIUM SERUM 4.4 MEQ/L (3.5-5.1); SODIUM LEVEL 140 MEQ/L (136-145); TOTAL PROTEIN 7.7 GM/DL (6.4-8.2); TROPONIN I < 0.02 NG/ML (< 0.10)
[2020-11-02] MEDS: LEVALBUTEROL 1.25 MG/0.5 ML CONCENTRATE NEB INH PRN ×2 (20:20→22:29)
--- NOTE | 2020-11-02 20:43 | REPVR ---
PROCEDURE INFORMATION: Exam: CT Angiography Chest With Contrast Exam date and time: 11/02/2020 7:35 PM Age: 70 years old Clinical indication: Shortness of breath; Additional info: Hypoxia / SOB / wheezing TECHNIQUE: Imaging protocol: Computed tomographic angiography of the chest with contrast. 3D rendering (Not supervised by radiologist): MIP and/or 3D reconstructed images were created by the technologist. Radiation optimization: All CT scans at this facility use at least one of these dose optimization techniques: automated exposure control; mA and/or kV adjustment per patient size (includes targeted exams where dose is matched to clinical indication); or iterative reconstruction. Contrast material: ISOVUE 370; Contrast volume: 75 ml; Contrast route: INTRAVENOUS (IV); COMPARISON: CT Chest without contrast 10/23/2020 1:02 PM FINDINGS: Limitations: Patient motion. Pulmonary arteries: No convincing evidence of pulmonary embolus. Aorta: Aortic calcification without aneurysm or dissection. Lungs: There is bilateral compressive atelectasis. There is bilateral perihilar predominant airspace disease. There is smooth interstitial thickening. Bilateral nonspecific ground-glass densities. Pleural spaces: Small to moderate right and small left pleural effusions. Heart: Coronary artery calcification. Lymph nodes: Unremarkable. No enlarged lymph nodes. Bones/joints: There are degenerative changes involving the spine. Soft tissues: Unremarkable. IMPRESSION: 1. Examination is limited by patient respiratory motion. 2. No convincing evidence of pulmonary embolus. 3. There is bilateral perihilar predominant airspace disease as well as interstitial thickening and ground-glass densities. Probable edema, component of pneumonia is not excluded. 4. Small to moderate right and small left pleural effusions. 5. Additional findings as above. Electronically signed by: Jenaro Newman On 11/02/2020 20:42:57 PM
[2020-11-02 21:52] LABS: ABG BASE EXCESS -1.7 (-2.0-2.0); ABG HCO3 20.6 MEQ/L (22.0-26.0); ABG PARTIAL PRESSURE CO2 27.8 mmHg (35.0-45.0); ABG PARTIAL PRESSURE O2 97.5 mmHg (75.0-100.0); ABG STANDARD HCO3 23.1 MEQ/L (22.0-26.0); ABG TOTAL CO2 21.4 MEQ/L (23.0-31.0); ABG pH (ARTERIAL) 7.487 UNITS (7.350-7.450)
[2020-11-02] MEDS: PIPERACILLIN/TAZOBACTAM SOD 3.375 GM in D5W MINI-BAG PLUS 50 ML IV SCH (21:55)
[2020-11-03] VITALS (7 sets, daily range): BP systolic 88–124; BP diastolic 50–72
[2020-11-03] MEDS: PIPERACILLIN/TAZOBACTAM SOD 3.375 GM in D5W MINI-BAG PLUS 50 ML IV SCH (02:06)
[2020-11-03] MEDS ORDERED: FUROSEMIDE 40MG/4ML VIAL (J1940) IV ONE (05:05)
[2020-11-03] MEDS: LEVALBUTEROL 1.25 MG/0.5 ML CONCENTRATE NEB INH PRN (05:19)
[2020-11-03 06:04] LABS: RED BLOOD COUNT 4.27 10^6/uL (4.00-5.40); WHITE BLOOD COUNT 10.6 10^3/uL (4.0-10.0)
[2020-11-03 06:05] LABS: BASO % 0.3 % (0.0-1.0); EOS # 0.1 10^3/uL (0.0-0.5); EOS % 0.7 % (0.0-3.0); HEMOGLOBIN 10.7 g/dl (12.0-15.5); LYMPH # 1.6 10^3/uL (1.5-5.0); MEAN CORPUSCULAR HEMOGLOBIN 25.1 pg (27.0-33.0); MEAN CORPUSCULAR HGB CONC 30.6 g/dl (32.0-36.5); MONO # 0.6 10^3/uL (0.0-0.8); MONO % 5.6 % (2.0-8.0); NEUTROPHILS # 8.3 10^3/uL (1.5-8.5); NEUTROPHILS % 77.9 % (36.0-66.0); PLATELET COUNT, AUTOMATED 213 10^3/uL (150-450)
[2020-11-03 06:19] LABS: BLOOD UREA NITROGEN 16 MG/DL (7-18); CALCIUM LEVEL 8.5 MG/DL (8.8-10.2); CARBON DIOXIDE LEVEL 30 MEQ/L (21-32); CHLORIDE LEVEL 107 MEQ/L (98-107); CREATININE FOR GFR 0.92 MG/DL (0.55-1.30); GLOMERULAR FILTRATION RATE > 60.0 (>45); GLUCOSE, FASTING 125 MG/DL (70-100); SODIUM LEVEL 143 MEQ/L (136-145)
[2020-11-03] MEDS: HumaLOG INSULIN (NovoLOG) PER UNIT SC SCH ×4 (07:30→20:59)
[2020-11-03] MEDS ORDERED: cefTRIAXone SOD 1 GM in D5W MINI-BAG PLUS 50 ML IV SCH (09:00)
--- NOTE | 2020-11-03 09:32 | IPN ---
PROGRESS NOTE DATE: 11/03/2020 SUBJECTIVE: Mrs. Hooks was doing very well throughout the day yesterday until around 7 o'clock in the evening, when she suddenly started being very tachycardic and extremely dyspneic. She also had chills and fever. Apparently by physical exam, it was felt that she was in acute congestive heart failure. She was given additional doses of metoprolol, furosemide, antibiotics, and eventually improved. This morning, she is again feeling well, but the experience yesterday was certainly scary to her. CT angiography was performed, which was most consistent with congestive heart failure; even though, it was felt that pneumonia is in the differential diagnosis. Review of telemetry reveals that she was well-controlled during the day, but then in the evening hours she started being really tachycardic. That persisted for several hours, but eventually came down in the morning. OBJECTIVE: GENERAL APPEARANCE: The patient seems to be a little anxious, but otherwise alert, oriented, and appropriate. VITAL SIGNS: Blood pressure 124/62, heart rate around 80 irregularly irregular. She is currently afebrile even though T-max was 101.7 at 8 p.m. Saturation 96%. When I saw her, she was without oxygen sitting by the PCU bed. NECK: Her JVP is not high. LUNGS: Clear with good air movement. No wheezing, crackles, or rhonchi. HEART: Reveals irregular rhythm without obvious gallop or rub. ABDOMEN: Obese and soft. EXTREMITIES: Free of edema. LABORATORY DATA: As of this morning, CBC revealed a WBC count 10.6, hemoglobin 10.7, hematocrit 35, and platelet count 213,000. Basic metabolic panel is normal, but for a glucose of 125. Lactic acid was drawn yesterday and was elevated at 3.0 and came down to 2.0 around midnight. Urinalysis yes had too many white blood cells to count and apparently had really dark color. Protein was also weakly positive. ASSESSMENT/PLAN : Mrs. Hooks is a 70-year-old female with longstanding history of hypertension who has probably relatively recent onset of atrial fibrillation. I do believe that her dyspnea is indeed in great part due to congestive heart failure that is likely brought on by tachycardia. I suspect that she has underlying hypertensive heart disease with significant diastolic dysfunction and does not tolerate tachycardic rate well. She yesterday morning received 100 mg of Toprol XL, which clearly was not sufficient to control her rate. The dose was increased to 200 mg this morning, which I agree with. Hopefully, this will be sufficient to accomplish good rate control. She is also receiving oral amiodarone that was started only a few days ago and consequently, it will take some time before it will exert significant effect. It is likely that the episode of tachycardia in the evening was exacerbated or triggered by fever and chills. She possibly has an urinary tract infection (UTI) or even pulmonary infection. She was started on ceftriaxone with pending cultures. She is obviously chronically anticoagulated. I do not believe that she is grossly volume overloaded and I would dose the diuretics on an as-needed basis. I am off for the weekend, please contact coal gasification technician intelligence operations specialist if further assistance is necessary. I am hopeful that she will be able to go home tomorrow. TEA
[2020-11-03] MEDS: ATORVASTATIN 10 MG TAB PO SCH (09:34)
[2020-11-03] MEDS: AMIODARONE 200 MG TAB (PACERONE) PO SCH ×2 (09:34→20:49)
[2020-11-03] MEDS: APIXABAN 5 MG TAB (ELIQUIS) PO SCH ×2 (09:34→20:49)
[2020-11-03] MEDS: DOCUSATE SODIUM 100MG CAPSULE PO SCH ×2 (09:35→20:49)
[2020-11-03] MEDS: OCUVITE 1 TAB PO SCH (09:35)
[2020-11-03] MEDS: METOPROLOL SUCC (TopROL XL) 100MG *XL* TAB PO SCH (09:36)
--- NOTE | 2020-11-03 10:19 | IPNPDOC ---
Text Note Date of Service The patient was seen on 11/03/20. NOTE Subjective: Patient is a 70-year-old female who presented to the emergency room with complaints of shortness of breath. Patient has recently been admitted to [facility] on 10/23-10/25 for shortness of breath and palpitations, found to have new onset atrial fibrillation. Patient was ultimately transitioned to Eliquis and Cardizem 120mg extended release. Patient ultimately followed up with Dr. Perez on 10/31. Patient was noted to have a heart rate in the 140s and she was advised to go to the ER, however was against the idea. Patient had her dose of Cardizem increased to 180mg as well as amiodarone added. Patient was admitted to the hospital service for further evaluation and treatment. Yesterday evening, patient was experiencing worsening shortness of breath, required supplemental oxygen. Patient was found to have signs of fluid overload imaging and lab work was acquired immediately. Patient was given a dose of furosemide and inhaled therapy with Xopenex. Patient was seen and examined at the bedside. Patient was seen sitting up in chair. Reports that she was able to sleep at night. Denies any chest pain or palpitations. Reports that her shortness of breath has improved significantly. He still reports hoarse voice. Denies any nausea, vomiting, abdominal pain, diarrhea, or discomfort with urination. Reports that her urine has become clearer. Objective: Vitals (See below) General: Patient is currently sitting up in chair, appears comfortable, no acute distress, awake and alert, oriented 3 HEENT: NC, AT CVS: IrIr, +S1S2 Lungs: Auscultation today does not reveal any wheezing, rhonchi or crackles and is fair bilaterally Abdomen: Soft without distention or tenderness Extremities: Trace LE edema noted , - Calf tenderness Imaging: CXR 11/01: Diffuse interstitial coarsening appears to have increased from the prior study. There are no focal infiltrates. The effacement of the right costophrenic angle on the previous study has resolved. CTA chest 11/02: 1. Examination is limited by patient respiratory motion. 2. No convincing evidence of pulmonary embolus. 3. There is bilateral perihilar predominant airspace disease as well as interstitial thickening and ground-glass densities. Probable edema, component of pneumonia is not excluded. 4. Small to moderate right and small left pleural effusions. 5. Additional findings as above. Assessment and plan: s/p Shortness of breath - likely 2/2 uncontrolled A fib with RVR - History of chronic atrial fibrillation diagnosed on 10/23/2020 - HR still slightly uncontrolled - Troponin x4 negative - s/p Cardizem 20mg IV x 2 doses, Cardizem 30mg PO in the ER - c/w Amiodarone - Increased dose of Metoprolol Succinate today - c/w full anticoagulation with Eliquis - Dr. Perez on consultation; appreciate their input s/p Acute hypoxic respiratory failure - likely 2/2 fluid overload 2/2 decompensated systolic CHF - likely 2/2 tachyarrhythmia - Yesterday patient was reporting significant shortness of breath - Patient was tachypneic and requiring 10 L of high flow nasal cannula oxygen; currently saturating well on room air - Imaging acquired status revealed evidence of bilateral pleural effusions and interstitial edema - Received Furosemide yesterday and additional dose this morning Left bundle branch block HTN - BP normotensive currently - CXR noted above DLP - c/w Atorvastatin NIDDM2 - c/w ISS Morbid obesity - BMI of 40.5 - Complicating medical care Seasonal allergies / Chronic Asthma - No evidence of wheezing / exacerbation - c/w inhaled therapy as ordered GERD - c/w Omeprazole DVT prophylaxis - c/w full anticoagulation with Eliquis Disposition: - If HR remains controlled will anticipate DC tomorrow VS,Fishbone, I+O VS, Fishbone, I+O Laboratory Tests 11/02/20 19:26 11/03/20 05:34 Vital Signs Date Time Temp Pulse Resp B/P (MAP) Pulse Ox O2 Delivery O2 Flow Rate FiO2 11/03/20 09:36 112 106/50 11/03/20 08:00 98.4 17 98 Room Air I&O- Last 24 Hours up to 6 AM 11/03/20 05:59 Intake Total 1080 ml Output Total 1300 ml Balance -220 ml JAMEY BRIDGES MD Nov 03, 2020 10:19
--- NOTE | 2020-11-03 10:22 | ECGEPIP ---
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
[2020-11-04] VITALS: BP 111/66
[2020-11-04 04:00] VITALS: BP 110/61
[2020-11-04 05:26] LABS: BASO % 0.4 % (0.0-1.0); EOS # 0.3 10^3/uL (0.0-0.5); EOS % 3.4 % (0.0-3.0); HEMATOCRIT 35.1 % (36.0-47.0); HEMOGLOBIN 10.8 g/dl (12.0-15.5); LYMPH # 2.2 10^3/uL (1.5-5.0); LYMPH % 24.4 % (24.0-44.0); MEAN CORPUSCULAR HEMOGLOBIN 24.7 pg (27.0-33.0); MEAN CORPUSCULAR HGB CONC 30.8 g/dl (32.0-36.5); MEAN CORPUSCULAR VOLUME 80.3 fl (80.0-96.0); MONO # 0.8 10^3/uL (0.0-0.8); MONO % 8.6 % (2.0-8.0); NEUTROPHILS # 5.7 10^3/uL (1.5-8.5); NEUTROPHILS % 62.9 % (36.0-66.0); PLATELET COUNT, AUTOMATED 227 10^3/uL (150-450); RED BLOOD COUNT 4.37 10^6/uL (4.00-5.40); WHITE BLOOD COUNT 9.1 10^3/uL (4.0-10.0)
[2020-11-04 05:52] LABS: BLOOD UREA NITROGEN 18 MG/DL (7-18); CALCIUM LEVEL 8.7 MG/DL (8.8-10.2); CARBON DIOXIDE LEVEL 26 MEQ/L (21-32); CHLORIDE LEVEL 107 MEQ/L (98-107); CREATININE FOR GFR 0.84 MG/DL (0.55-1.30); GLOMERULAR FILTRATION RATE > 60.0 (>45); GLUCOSE, FASTING 132 MG/DL (70-100); MAGNESIUM LEVEL 2.1 MG/DL (1.8-2.4); POTASSIUM SERUM 3.8 MEQ/L (3.5-5.1); SODIUM LEVEL 140 MEQ/L (136-145)
[2020-11-04] MEDS: HumaLOG INSULIN (NovoLOG) PER UNIT SC SCH (07:30)
[2020-11-04 08:00] VITALS: BP 109/64
[2020-11-04] MEDS: AMIODARONE 200 MG TAB (PACERONE) PO SCH (08:24)
[2020-11-04] MEDS: APIXABAN 5 MG TAB (ELIQUIS) PO SCH (08:24)
[2020-11-04] MEDS: OCUVITE 1 TAB PO SCH (08:25)
[2020-11-04] MEDS: ATORVASTATIN 10 MG TAB PO SCH (08:25)
[2020-11-04] MEDS: DOCUSATE SODIUM 100MG CAPSULE PO SCH (08:25)
[2020-11-04] MEDS: METOPROLOL SUCC (TopROL XL) 100MG *XL* TAB PO SCH (08:25)
[2020-11-04] MEDS ORDERED: CEFDINIR 300 MG CAP (OMNICEF) PO SCH (09:00)
[2020-11-04] MEDS ORDERED: METO1TAB33 PO (09:17)
[2020-11-04] MEDS ORDERED: CEFD300CAP PO (09:17)
[2020-11-04] MEDS ORDERED: FUROSEMIDE 40MG/4ML VIAL (J1940) IV ONE (09:20)
--- NOTE | 2020-11-04 11:00 | DS.PDOC ---
Discharge Summary General Date of Admission Nov 01, 2020 at 15:20 Date of Discharge 11/04/2020 Discharge Summary PROCEDURES PERFORMED DURING STAY: [None]. ADMITTING DIAGNOSES / DISCHARGE DIAGNOSES: s/p Shortness of breath - likely 2/2 uncontrolled A fib with RVR s/p Acute hypoxic respiratory failure - likely 2/2 fluid overload 2/2 decompensated systolic CHF (EF 45-50%) - likely 2/2 tachyarrhythmia Left bundle branch block HTN DLP NIDDM2 Morbid obesity Seasonal allergies / Chronic Asthma GERD DVT prophylaxis COMPLICATIONS/CHIEF COMPLAINT: Shortness of breath HISTORY OF PRESENT ILLNESS: Patient is a 70-year-old female who presented to the emergency room with complaints of shortness of breath. Patient has recently been admitted to [facility] on 10/23-10/25 for shortness of breath and palpitations, found to have new onset atrial fibrillation. Patient was transitioned to Eliquis and Cardizem 120mg extended release. Patient then followed up with Dr. Perez on 10/31. She was noted to have a heart rate in the 140s and she was advised to go to the ER, however was against the idea. Patient had her dose of Cardizem increased to 180mg as well as amiodarone added. At home. Patient continued to experience shortness of breath and came to the ER for further evaluation. Maria Esther borges was admitted to the hospital service for further evaluation and treatment. Patient was seen and examined at the bedside currently reports that she feels a lot better. Reports that her breathing is easier. Denies any chest pain or palpitations. Has not experience any nausea, vomiting, abdominal pain, diarrhea, or discomfort with urination. HOSPITAL COURSE: s/p Shortness of breath - likely 2/2 uncontrolled A fib with RVR - History of chronic atrial fibrillation diagnosed on 10/23/2020 - HR has remained better controlled throughout yesterday - Troponin x4 negative - s/p Cardizem - c/w Amiodarone and adjusted dose of Metoprolol succinate - c/w full anticoagulation with Eliquis - Dr. Perez on consultation; appreciate their input - Will have outpatient follow-up with cardiology within the next 7 days s/p Acute hypoxic respiratory failure - likely 2/2 fluid overload 2/2 decompensa noelle systolic CHF (EF 45-50%) - likely 2/2 tachyarrhythmia - On 11/02 patient was reporting significant shortness of breath that evening - Patient was tachypneic and requiring 10 L of high flow nasal cannula oxygen; currently saturating well on room air - Imaging acquired status revealed evidence of bilateral pleural effusions and interstitial edema - Has improved with lasix - Will provide additional dose of IV Lasix today and then continue with home regimen Left bundle branch block HTN - BP normotensive currently - c/w Metoprolol DLP - c/w Atorvastatin NIDDM2 - c/w ISS Morbid obesity - BMI of 40.5 - Complicating medical care Seasonal allergies / Chronic Asthma - No evidence of wheezing / exacerbation - c/w inhaled therapy as ordered GERD - c/w Omeprazole DVT prophylaxis - c/w full anticoagulation with Eliquis DISCHARGE MEDICATIONS: Please see below. ALLERGIES: Please see below. PHYSICAL EXAMINATION ON DISCHARGE: Vitals (See below) General: Patient appears comfortable sitting up in chair without any acute distress, is awake, alert, oriented to person, place and time HEENT: NC, AT CVS: IrIr, +S1S2 Lungs: Again, auscultation, there does not appear to be any wheezing, crackles or rhonchi this morning Abdomen: Without distention or tenderness and remains soft Extremities: Bilateral ankles reveal trace pitting edema LABORATORY DATA: Please see below. IMAGING: CXR 11/01: Diffuse interstitial coarsening appears to have increased from the prior study. There are no focal infiltrates. The effacement of the right costophrenic angle on the previous study has resolved. CTA chest 11/02: 1. Examination is limited by patient respiratory motion. 2. No convincing evidence of pulmonary embolus. 3. There is bilateral perihilar predominant airspace disease as well as interstitial thickening and ground-glass densities. Probable edema, component of pneumonia is not excluded. 4. Small to moderate right and small left pleural effusions. 5. Additional findings as above. ACTIVITY: [As tolerated]. DISCHARGE PLAN: Follow-up with primary care provider, and cardiology within the next 7 days Remain compliant with treatment plan and medications Return to the ER if you experience any problems DISPOSITION: Home with services DISCHARGE CONDITION: [Stable]. TIME SPENT ON DISCHARGE: 35 minutes. Vital Signs/I&Os Vital Signs Date Time Temp Pulse Resp B/P (MAP) Pulse Ox O2 Delivery O2 Flow Rate FiO2 11/04/20 08:00 97.7 103 20 109/64 (79) 98 Room Air 11/03/20 08:00 I&O- Last 24 Hours up to 6 AM 11/04/20 05:59 Intake Total 1715 ml Output Total 1750 ml Balance -35 ml Laboratory Data Labs 24H Laboratory Tests 2 11/03/20 12:21: Bedside Glucose (Misc Panel) 119H 11/03/20 16:52: Bedside Glucose (Misc Panel) 135H 11/03/20 20:59: Bedside Glucose (Misc Panel) 169H 11/04/20 05:12: Immature Granulocyte % (Auto) 0.3, Neutrophils (%) (Auto) 62.9, Lymphocytes (%) (Auto) 24.4, Monocytes (%) (Auto) 8.6H, Eosinophils (%) (Auto) 3.4H, Basophils (%) (Auto) 0.4, Neutrophils # (Auto) 5.7, Lymphocytes # (Auto) 2.2, Monocytes # (Auto) 0.8, Eosinophils # (Auto) 0.3, Basophils # (Auto) 0.0, Nucleated Red Blood Cells % (auto) 0.0, Anion Gap 7L, Glomerular Filtration Rate > 60.0, Calcium Level 8.7L, Magnesium Level 2.1 CBC/BMP Laboratory Tests 11/04/20 05:12 FSBS Laboratory Tests Test 11/03/20 12:21 11/03/20 16:52 11/03/20 20:59 Range/Units Bedside Glucose (Misc Panel) 119 135 169 80-115 MG/DL Microbiology Microbiology 11/02/20 Blood Culture - Preliminary, Resulted No growth after 24 hours . All specim... 11/02/20 Urine Culture - Final, Complete Escherichia Coli 11/02/20 Blood Culture - Preliminary, Resulted No growth after 24 hours . All specim... 11/01/20 Respiratory Virus Panel (PCR) (GISELA) - Final, Complete Discharge Medications Scheduled Amiodarone HCl (Amiodarone HCl) 200 Mg Tablet, 200 MG PO BID, (Reported) Apixaban (Eliquis) 5 Mg Tablet, 5 MG PO BID, (Reported) Atorvastatin Calcium (Atorvastatin Calcium) 10 Mg Tablet, 10 MG PO DAILY, (Reported) Cefdinir (Cefdinir) 300 Mg Capsule, 300 MG PO BID Flaxseed Oil (Flaxseed) 1,000 Mg Capsule, 1,000 MG PO DAILY, (Reported) Furosemide (Furosemide) 20 Mg Tablet, 20 MG PO Q2D, (Reported) Magnesium Chloride (Mag64) 64 Mg Tablet.dr, 128 MG PO DAILY, (Reported) Metoprolol Succinate (Metoprolol Succinate) 100 Mg Tab.er.24h, 200 MG PO DAILY Sitagliptin Phos/Metformin HCl (Janumet Xr 100-1,000 mg Tablet) 1 Each Tbmp.24hr, 1 TAB PO DAILY, (Reported) Vit A/Vit C/Vit E/Zinc/Copper (Preservision Areds Tablet) 1 Each Tablet, 1 TAB PO DAILY, (Reported) Scheduled PRN Acetaminophen (Acetaminophen) 500 Mg Tablet, 1,000 MG PO Q6H PRN for PAIN, (Reported) Meloxicam (Mobic) 7.5 Mg Tablet, 7.5 MG PO DAILY PRN for PAIN, (Reported) WITH FOOD Omeprazole (Omeprazole) 40 Mg Capsule.dr, 40 MG PO QHS PRN for HEARTBURN, (Reported) Allergies Coded Allergies: morphine (Verified Adverse Reaction, Mild, feels strange, 03/29/20) procaine (Verified Adverse Reaction, Mild, PALPITATIONS, 03/29/20) JAMEY BRIDGES MD Nov 04, 2020 11:00
== END 2020-11-04 12:22 | disposition home or self-care (01) | DRG 308 ==
LOC: M ED 11:49 → M ED INP 15:20 → ENRESERV 17:00 → M PCU 17:32
PROVIDERS: ADMIT Internal Medicine; ATTEND Internal Medicine
DX: I48.19 Other persistent atrial fibrillation (principal); I50.31 Acute diastolic (congestive) heart failure; J96.01 Acute respiratory failure with hypoxia; Z68.41 Body mass index [BMI] 40.0-44.9, adult; E66.01 Morbid (severe) obesity due to excess calories; I11.0 Hypertensive heart disease with heart failure; E11.9 Type 2 diabetes mellitus without complications; K21.9 Gastro-esophageal reflux disease without esophagitis; I44.7 Left bundle-branch block, unspecified; J45.909 Unspecified asthma, uncomplicated; Z79.899 Other long term (current) drug therapy; Z88.5 Allergy status to narcotic agent; Z88.8 Allergy status to other drugs, medicaments and biological substances; Z96.643 Presence of artificial hip joint, bilateral; E78.5 Hyperlipidemia, unspecified; Z87.891 Personal history of nicotine dependence

== ENCOUNTER → 2020-11-10 | Outpatient (CLI) | payer MEDICARE, OTHER ==
[~2020-11-10] MED LIST changes: +AMIO200T3 PO; +CEFD300CAP PO; +DILT180C78 PO; +METO1TAB33 PO
== END ==
LOC: M LABSMTC 11:28
PROVIDERS: ATTEND Anesthesiology
DX: Z11.52 Encounter for screening for COVID-19 (principal)

== ENCOUNTER 2020-11-14 06:04 | Day surgery (SDC) | payer MEDICARE, OTHER ==
[~2020-11-14] VITALS: Ht 167.6 cm; Wt 99.2 kg
[~2020-11-14 06:04] MED LIST changes: +LR 1,000 ML IV ONE
[2020-11-14] MEDS ORDERED: LIDOCAINE VISCOUS 2% SOLN 15ML UDC As Ordered ONE (07:09)
[2020-11-14] MEDS ORDERED: CETACAINE SPRAY 5GM As Ordered ONE (07:09)
[2020-11-14] MEDS ORDERED: MIDAZOLAM INJ 2MG/2ML VIAL (J2250 PER 1MG) As Ordered ONE (07:23)
[2020-11-14] MEDS ORDERED: propofoL 200 MG/20 ML VIAL As Ordered ONE (07:47)
[2020-11-14] MEDS ORDERED: LIDOCAINE 2% 100MG/5ML SDV (FOR ANES.) As Ordered ONE (07:47)
[2020-11-14] MEDS ORDERED: PHENYLephrine 500MCG 5ML (100MCG/ML) SYRINGE As Ordered ONE (08:02)
--- NOTE | 2020-11-14 08:03 | ECGEPIP ---
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 Electronically Signed on 11-14-2020 8:02:48 EDT by David Nugent
[2020-11-14] MEDS ORDERED: oxyCODONE 5MG TAB PO PRN (08:35)
[2020-11-14] MEDS ORDERED: ONDANSETRON 4MG/2ML VIAL IV PRN (08:35)
[2020-11-14 09:15] VITALS: BP 133/89
--- NOTE | 2020-11-14 09:36 | RO ---
OPERATIVE NOTE DATE OF OPERATION: 11/14/2020 PROCEDURE: Transesophageal echocardiogram. PREOPERATIVE DIAGNOSIS: Atrial fibrillation. POSTOPERATIVE DIAGNOSIS: Cardiomyopathy, no LA appendage thrombus SURGEON: Lele Perez M.D. PLATE DRYING MACHINE TENDER: None. ANESTHESIOLOGY: Vin Sweet CRNA. BRIEF HISTORY: Mrs. Hooks is a 70-year-old female who has had atrial fibrillation persistent for a little over two weeks. She has been very difficult to rate control and has repeated hospitalizations for congestive heart failure. Consequently we decided to proceed with DC cardioversion and in preparation for the procedure I needed to perform transesophageal echocardiogram to make sure she does not have left atrial appendage thrombus. The nature of the procedure and its potential complications and outcomes were discussed with the patient on outpatient basis and she did sign appropriate consent. I again met with the patient prior to the procedure and went over the details of the procedures, its rationale and potential complications in great detail. DESCRIPTION OF PROCEDURE: Procedure was performed in the operating room. The patient presented in a fasting condition. After appropriate time out was taken and all monitors were applied, her posterior pharynx was anesthetized using viscous Lidocaine and Cetacaine spray. She was positioned in the left lateral decubitus position. Biteblock was applied. When appropriate sedation was accomplished as administered by anesthesiology, the probe was introduced into the esophagus and later the stomach without difficulty. After appropriate images were obtained it was withdrawn. There were no immediate complications and the patient tolerated the procedure well. We then proceeded with cardioversion, please see separate dictation. FINDINGS: Left ventricle is globally hypokinetic. Septum appears akinetic consistent with left bundle branch block but the remaining segments are globally hypokinetic. I estimate overall EF approximately 20-25%. The right ventricle also appears hypokinetic. Both atria appear enlarged. Mitral valve has normal structure and mobility. By color Doppler imaging there is only trace insufficiency. Same applies for tricuspid valve. Trace pulmonic insufficiency is also noted. Aortic valve is tricuspid, has normal structure and normal function based on color doppler imaging. Left atrial septum is intact based on 2D and color Doppler imaging. There is normal flow in both left and right-sided veins but velocities are low consistent with low flow state and atrial fibrillation. The left atrial appendage is large; I did not visualize any obvious thrombus. No pericardial effusion is noted. There is only mild atherosclerosis of the thoracic aorta. CONCLUSIONS: 1. Globally hypokinetic left ventricle with estimated LV of 20-25%. 2. No hemodynamically significant valvular disease. 3. Left atrial appendage free of thrombus. 4. Intact atrial septum. 5. Minimal atherosclerosis of the thoracic aorta. cc: ROBERTO CARLOS PENDLETON MD MTDD
--- NOTE | 2020-11-14 10:23 | RO ---
OPERATIVE NOTE DATE OF OPERATION: 11/14/2020 PREOPERATIVE DIAGNOSIS: Atrial fibrillation. POSTOPERATIVE DIAGNOSIS: Resumption of sinus rhythm. PROCEDURE: Cardioversion. SURGEON: Lele Perez M.D. LONG TERM CARE PHARMACIST: None. ANESTHESIA: Vin Sweet CRNA BRIEF HISTORY: Mrs. Fraser is a 70-year-old female who now has had persistent atrial fibrillation for a little over two weeks. She has been difficult to rate control despite high doses of beta blockers and Amiodarone. Consequently, she is being brought for CELIA to be followed by cardioversion. The nature of the procedure, the potential complications and rationale were discussed at length on outpatient basis and she did sign appropriate consent. She was again seen and examined just before the procedure and we went over these issues at great length repeatedly. Cardioversion was preceded by transesophageal echocardiogram. Briefly, it revealed left ventricular systolic dysfunction with estimated LV of approximately 20-25%, no hemodynamically significant valvular disease and left atrial appendage was free of thrombus. DESCRIPTION OF PROCEDURE: The procedure was preceded by transesophageal echocardiogram. Please see separate report. While the patient was still under anesthesia she was cardioverted with 200 joules of energy applied with defibrillator patches in typical position in synchronized mode. Single shock led to roman catholic of sinus rhythm. There was no post-conversion pause. The patient tolerated the procedure well and there were no immediate complications. CONCLUSION: Successful cardioversion of atrial fibrillation into sinus rhythm. DISPOSITION: Provided no complication occurs she will be discharged home later today and her chronic medications will be continued with the exception of reducing the dose of Metoprolol due to bradycardia. I will see her in follow up later this week. cc: ROBERTO CARLOS PENDLETON MD [facility] MEDICAL CENTERBaljinder
--- NOTE | 2020-11-14 21:53 | ECGEPIP ---
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
--- NOTE | 2020-11-20 11:33 | IPN ---
PROGRESS NOTE ADDENDUM DATE: 11/14/2020 ADDENDUM: After cardioversion was completed, the patient was initially in sinus rhythm with heart rate around 50 beats per minute but then she became more bradycardic with heart rate dropping into high 30s, low 40s. She had narrow QRS complex and there were no episodes of high degree AV block or any degree of AV block. Initially I felt that the patient will have to be kept on observation but then he went back into atrial fibrillation with rapid ventricular response and heart rate in the low 100s, but as I came to reevaluate the patient, she in front of my eyes converted again into sinus rhythm with ventricular rate in the 60s. At this point, we will discharge the patient home without her Toprol. I will see her in followup tomorrow. I spoke with her that it is possible that she may need additional procedures, possibly an ablation or even potentially a pacemaker placement.
== END 2020-11-14 09:40 | disposition home or self-care (01) ==
LOC: M SDC 06:04
PROVIDERS: ATTEND Internal Medicine Cardiovascular Disease
DX: I50.1 Left ventricular failure, unspecified (principal); I48.91 Unspecified atrial fibrillation; I42.9 Cardiomyopathy, unspecified; E11.9 Type 2 diabetes mellitus without complications; E04.1 Nontoxic single thyroid nodule; I10 Essential (primary) hypertension; I44.7 Left bundle-branch block, unspecified; E78.5 Hyperlipidemia, unspecified; K21.9 Gastro-esophageal reflux disease without esophagitis; R06.02 Shortness of breath; Z87.891 Personal history of nicotine dependence; M19.90 Unspecified osteoarthritis, unspecified site; M54.9 Dorsalgia, unspecified; J45.909 Unspecified asthma, uncomplicated; Z88.5 Allergy status to narcotic agent; Z88.4 Allergy status to anesthetic agent; Z79.899 Other long term (current) drug therapy; Z79.84 Long term (current) use of oral hypoglycemic drugs
CPT/HCPCS: 92960; 93005; 93312; 93320; 93325; J2250; J2370

== ENCOUNTER → 2020-12-14 | Outpatient (CLI) | payer MEDICARE, OTHER ==
[~2020-12-14] MED LIST changes: -LR 1,000 ML IV ONE
== END ==
LOC: M PLALAB 09:45
PROVIDERS: ATTEND Internal Medicine Endocrinology, Diabetes & Metabolism
DX: E04.2 Nontoxic multinodular goiter (principal)

== ENCOUNTER → 2021-05-17 | Outpatient (REF) | payer MEDICARE, OTHER ==
[~2021-05-17] MED LIST changes: +OMEP40CA4 PO; -OMEP40CA97 PO
== END ==
LOC: M LAB REF 17:00
PROVIDERS: ATTEND Internal Medicine Endocrinology, Diabetes & Metabolism
DX: E04.1 Nontoxic single thyroid nodule (principal)

== ENCOUNTER → 2021-08-23 | Outpatient (REF) | payer MEDICARE, OTHER ==
[~2021-08-23] MED LIST changes: -AMIO200T3 PO; +AMIO200T49 PO; -LISI-898 PO; +LISI5TAB11 PO
[2021-08-27 15:19] LABS: % LABILE ALKALINE PHOSPHATASE 51.4 %
== END ==
LOC: M LAB REF 14:21
PROVIDERS: ATTEND Family Medicine
DX: R74.8 Abnormal levels of other serum enzymes (principal)

== ENCOUNTER → 2021-09-10 | Outpatient (CLI) | payer MEDICARE, OTHER | LOC: M WHC 09:53 | PROVIDERS: ATTEND Family Medicine | DX: Z12.31 Encounter for screening mammogram for malignant neoplasm of breast (principal); Z80.3 Family history of malignant neoplasm of breast; Z80.42 Family history of malignant neoplasm of prostate ==

== ENCOUNTER → 2022-09-16 | Outpatient (CLI) | payer MEDICARE, OTHER | LOC: M WHC 09:16 | PROVIDERS: ATTEND Family Medicine | DX: Z12.31 Encounter for screening mammogram for malignant neoplasm of breast (principal); Z80.3 Family history of malignant neoplasm of breast ==

== ENCOUNTER → 2023-09-17 | Outpatient (CLI) | payer MEDICARE, OTHER | LOC: M WHC 08:58 | PROVIDERS: ATTEND Family Medicine | DX: Z12.31 Encounter for screening mammogram for malignant neoplasm of breast (principal) ==

== ENCOUNTER → 2024-09-20 | Outpatient (CLI) | payer MEDICARE, OTHER | LOC: M WHC 09:34 | PROVIDERS: ATTEND Family Medicine | DX: Z12.31 Encounter for screening mammogram for malignant neoplasm of breast (principal); R92.313 Mammographic fatty tissue density, bilateral breasts ==

== ENCOUNTER → 2024-10-07 | Outpatient (CLI) | payer MEDICARE, OTHER | LOC: M WUC 11:02 | PROVIDERS: ATTEND Family Medicine | DX: M54.16 Radiculopathy, lumbar region (principal); Z96.643 Presence of artificial hip joint, bilateral; M47.816 Spondylosis without myelopathy or radiculopathy, lumbar region ==

== ENCOUNTER → 2025-06-29 | Outpatient (REF) | payer MEDICARE, OTHER ==
[~2025-06-29] MED LIST changes: -AMIO200T49 PO; +AMIO200T54 PO
== END ==
LOC: M LAB REF 12:43
PROVIDERS: ATTEND Family Medicine
DX: D64.9 Anemia, unspecified (principal)